=== PATIENT | male | born 1955 | race Caucasian/White ===

== ENCOUNTER 2023-12-29 03:28 | Inpatient (IN) | payer MEDICARE, OTHER ==
[2023-12-29] VITALS (7 sets, daily range): BP systolic 163–194; BP diastolic 88–98; TEMP 97.7–98.1; O2SAT 96–97
[~2023-12-29] VITALS: Ht 144.8 cm; Wt 57.6 kg
[2023-12-29 04:09] LABS: BASO # 0.1 10^3/uL (0.0-0.2); BASO % 1.1 % (0.0-1.0); EOS # 0.1 10^3/uL (0.0-0.5); EOS % 0.9 % (0.0-3.0); HEMATOCRIT 52.8 % (42.0-52.0); HEMOGLOBIN 18.4 g/dl (13.5-17.5); LYMPH # 2.5 10^3/uL (1.5-5.0); LYMPH % 25.1 % (24.0-44.0); MEAN CORPUSCULAR HGB CONC 34.8 g/dl (32.0-36.5); MEAN CORPUSCULAR VOLUME 94.8 fl (80.0-96.0); MONO # 1.4 10^3/uL (0.0-0.8); MONO % 13.6 % (2.0-8.0); NEUTROPHILS # 5.9 10^3/uL (1.5-8.5); NEUTROPHILS % 58.5 % (36.0-66.0); PLATELET COUNT, AUTOMATED 231 10^3/uL (150-450); RED BLOOD COUNT 5.57 10^6/uL (4.30-6.10); WHITE BLOOD COUNT 10.1 10^3/uL (4.0-10.0)
[2023-12-29] MEDS: methylPREDNISolone 125MG 2ML VIAL IV ONE (04:20)
[2023-12-29] MEDS: IPRATROPIUM 0.5MG/ALBUTEROL 2.5MG INH SOL UD 3ML (DUONEB) NEB SCH (04:31)
[2023-12-29 04:45] LABS: BLOOD UREA NITROGEN 10 MG/DL (9-23); CALCIUM LEVEL 8.7 MG/DL (8.3-10.6); CARBON DIOXIDE LEVEL 23 MMOL/L (20-31); CHLORIDE LEVEL 108 MMOL/L (98-107); CK-MB VALUE MASS < 1.0 NG/ML (<3.6); CPK CREATINE PHOSPHOKINASE 94 U/L (46-171); CREATININE FOR GFR 0.75 MG/DL (0.70-1.30); ETHYL ALCOHOL (ETHANOL) 0.335 % (0.000-0.010); GLOMERULAR FILTRATION RATE > 60.0 (>49); GLUCOSE, FASTING 87 MG/DL (74-106); MB/CK RELATIVE INDEX 1.06 (< OR =4); SODIUM LEVEL 141 MMOL/L (136-145)
[2023-12-29 05:31] LABS: CK-MB VALUE MASS < 1.0 NG/ML (<3.6)
[2023-12-29 05:33] LABS: CPK CREATINE PHOSPHOKINASE 49 U/L (46-171); MB/CK RELATIVE INDEX 2.04 (< OR =4); POTASSIUM SERUM 3.9 MMOL/L (3.5-5.1)
[2023-12-29] MEDS: LORazepam 2 MG/ML 1ML VIAL IV STA (05:41)
[2023-12-29] MEDS ORDERED: LORazepam 2 MG TAB PO PRN (06:10)
[2023-12-29] MEDS: ONDANSETRON 4MG 2ML VIAL IV ONE (06:16)
[2023-12-29] MEDS ORDERED: ISOVUE-370 76% 100ML VIAL As Ordered ONE (06:22)
[2023-12-29] MEDS: NS 1,000 ML IV ONE (06:46)
[2023-12-29] MEDS ORDERED: HOME MED LIST COMPLETE! XX SCH (07:00)
[2023-12-29] MEDS ORDERED: MAALOX 30 ML SUSP *UDC PO PRN (09:35)
[2023-12-29 09:45] LABS: BASO % 0.3 % (0.0-1.0); HEMATOCRIT 47.3 % (42.0-52.0); LYMPH # 0.4 10^3/uL (1.5-5.0); LYMPH % 4.4 % (24.0-44.0); MEAN CORPUSCULAR HEMOGLOBIN 32.8 pg (27.0-33.0); MEAN CORPUSCULAR VOLUME 96.3 fl (80.0-96.0); MONO # 0.1 10^3/uL (0.0-0.8); NEUTROPHILS # 8.6 10^3/uL (1.5-8.5); NEUTROPHILS % 93.5 % (36.0-66.0); PLATELET COUNT, AUTOMATED 200 10^3/uL (150-450); RED BLOOD COUNT 4.91 10^6/uL (4.30-6.10); WHITE BLOOD COUNT 9.2 10^3/uL (4.0-10.0)
[2023-12-29 09:48] LABS: PROTHROMBIN TIME 13.5 SECONDS (12.5-14.5)
[2023-12-29 09:49] LABS: HEMOGLOBIN 16.1 g/dl (13.5-17.5)
[2023-12-29 09:59] LABS: ALBUMIN 3.2 G/DL (3.2-5.2); BILIRUBIN,DIRECT 0.2 MG/DL (<0.4); BILIRUBIN,TOTAL 0.4 MG/DL (0.3-1.2); MAGNESIUM LEVEL 1.3 MG/DL (1.8-2.4); TOTAL PROTEIN 6.7 G/DL (5.7-8.2)
[2023-12-29] MEDS: THIAMINE 100 MG TAB PO SCH ×2 (10:11→20:45)
[2023-12-29] MEDS: PANTOPRAZOLE 40MG VIAL IV ONE (10:11)
[2023-12-29] MEDS: MULTIVITAMINS/MINERALS THERAP 1 TAB PO SCH (10:11)
[2023-12-29] MEDS: FOLIC ACID 1MG TAB PO SCH (10:11)
[2023-12-29] MEDS: PANTOPRAZOLE 40MG VIAL IV SCH (10:12)
[2023-12-29] MEDS: chlordiazePOXIDE 25 MG CAP PO SCH (11:53)
[2023-12-29] MEDS: MAG SULF 1GM/100ML (MAG RUN) 1 GM in IV 1 EA IV SCH (11:54)
[2023-12-29] MEDS: SUCRALFATE SUSP 1GM/10ML UD PO SCH (11:54)
[2023-12-29] MEDS: LORazepam 2 MG/ML 1ML VIAL IV PRN (16:27)
[2023-12-30] VITALS (13 sets, daily range): BP systolic 130–176; BP diastolic 70–93; TEMP 96.8–98.2; O2SAT 93–98
[2023-12-30] MEDS: METOCLOPRAMIDE INJ 10MG/2ML VIAL IV ONE (05:38)
[2023-12-30 06:09] LABS: HEMATOCRIT 44.2 % (42.0-52.0); MEAN CORPUSCULAR HEMOGLOBIN 32.9 pg (27.0-33.0); MEAN CORPUSCULAR HGB CONC 33.9 g/dl (32.0-36.5); MEAN CORPUSCULAR VOLUME 96.9 fl (80.0-96.0); PLATELET COUNT, AUTOMATED 183 10^3/uL (150-450); RED BLOOD COUNT 4.56 10^6/uL (4.30-6.10); WHITE BLOOD COUNT 14.4 10^3/uL (4.0-10.0)
[2023-12-30 06:30] LABS: ALKALINE PHOSPHATASE 119 U/L (40-129); ALT/SGPT 18 U/L (7.0-40); AST/SGOT 22 U/L (<34); BILIRUBIN,TOTAL 0.8 MG/DL (0.3-1.2); BLOOD UREA NITROGEN 16 MG/DL (9-23); CALCIUM LEVEL 8.3 MG/DL (8.3-10.6); CARBON DIOXIDE LEVEL 24 MMOL/L (20-31); CHLORIDE LEVEL 110 MMOL/L (98-107); CREATININE FOR GFR 0.85 MG/DL (0.70-1.30); GLOMERULAR FILTRATION RATE > 60.0 (>49); GLUCOSE, FASTING 111 MG/DL (74-106); MAGNESIUM LEVEL 2.3 MG/DL (1.8-2.4); POTASSIUM SERUM 4.6 MMOL/L (3.5-5.1); SODIUM LEVEL 141 MMOL/L (136-145); TOTAL PROTEIN 6.2 G/DL (5.7-8.2)
[2023-12-30] MEDS: MULTIVITAMINS/MINERALS THERAP 1 TAB PO SCH (09:01)
[2023-12-30] MEDS: OXAZEPAM 15MG CAP PO SCH (09:01)
[2023-12-30] MEDS: FOLIC ACID 1MG TAB PO SCH (09:01)
[2023-12-31] VITALS (64 sets, daily range): BP systolic 65–168; BP diastolic 48–85; TEMP 97.2–104.6; O2SAT 85–99
[2023-12-31] MEDS: ONDANSETRON 4MG 2ML VIAL IV ONE (00:01)
[2023-12-31 04:32] LABS: ABG BASE EXCESS -2.2 (-2.0-2.0); ABG HCO3 20.3 MMOL/L (22.0-26.0); ABG O2 SATURATION 92.1 % (95.0-99.0); ABG PARTIAL PRESSURE CO2 30.1 mmHg (35.0-45.0); ABG PARTIAL PRESSURE O2 59.7 mmHg (75.0-100.0); ABG STANDARD HCO3 22.5 MMOL/L. (22.0-26.0); ABG TOTAL CO2 21.2 MMOL/L (23.0-31.0); ABG pH (ARTERIAL) 7.447 UNITS (7.350-7.450)
[2023-12-31] MEDS: cefTRIAXone SOD 1 GM in DEXTROSE 5% (D5W) ADV/MINI-BAG 50 ML IV SCH (05:00)
[2023-12-31] MEDS: ONDANSETRON 4MG 2ML VIAL IV PRN (05:19)
[2023-12-31] MEDS: LORazepam 2 MG/ML 1ML VIAL IV PRN (05:30)
[2023-12-31 05:38] LABS: HEMATOCRIT 50.7 % (42.0-52.0); MEAN CORPUSCULAR HEMOGLOBIN 32.8 pg (27.0-33.0); MEAN CORPUSCULAR HGB CONC 33.5 g/dl (32.0-36.5); MEAN CORPUSCULAR VOLUME 97.9 fl (80.0-96.0); PLATELET COUNT, AUTOMATED 163 10^3/uL (150-450); RED BLOOD COUNT 5.18 10^6/uL (4.30-6.10); WHITE BLOOD COUNT 1.2 10^3/uL (4.0-10.0)
[2023-12-31 06:05] LABS: ALBUMIN 2.7 G/DL (3.2-5.2); ALKALINE PHOSPHATASE 99 U/L (40-129); ALT/SGPT 18 U/L (7.0-40); AST/SGOT 25 U/L (<34); BILIRUBIN,TOTAL 1.3 MG/DL (0.3-1.2); BLOOD UREA NITROGEN 29 MG/DL (9-23); CALCIUM LEVEL 8.2 MG/DL (8.3-10.6); CARBON DIOXIDE LEVEL 21 MMOL/L (20-31); CHLORIDE LEVEL 113 MMOL/L (98-107); CREATININE FOR GFR 1.06 MG/DL (0.70-1.30); GLOMERULAR FILTRATION RATE > 60.0 (>49); GLUCOSE, FASTING 124 MG/DL (74-106); POTASSIUM SERUM 4.4 MMOL/L (3.5-5.1); SODIUM LEVEL 143 MMOL/L (136-145); TOTAL PROTEIN 5.8 G/DL (5.7-8.2)
[2023-12-31] MEDS: metroNIDAZOLE 500 MG in IV 1 EA IV SCH (06:14)
[2023-12-31] MEDS: ACETAMINOPHEN *IV* 1,000 MG in IV 1 EA IV ONE (06:41)
[2023-12-31] MEDS ORDERED: NS 1,000 ML IV SCH (07:00)
[2023-12-31] MEDS: NS 1,000 ML IV ONE ×2 (07:36→11:57)
[2023-12-31 08:01] LABS: MAGNESIUM LEVEL 1.7 MG/DL (1.8-2.4)
[2023-12-31] MEDS ORDERED: PROCHLORPERAZINE 10MG 2ML VIAL IV PRN (09:00)
[2023-12-31] MEDS: LR 1,000 ML IV SCH ×2 (09:00→22:24)
[2023-12-31 09:04] LABS: VENOUS BASE EXCESS -6.4 (-2.0-2.0); VENOUS HCO3 19.5 MMOL/L (23.0-27.0); VENOUS O2 SATURATION 71.9 % (60.0-80.0); VENOUS PARTIAL PRESSURE CO2 40.3 mmHg (38.0-50.0); VENOUS PARTIAL PRESSURE O2 40.8 mmHg (30.0-50.0); VENOUS PH 7.303 UNITS (7.330-7.430); VENOUS STANDARD HCO3 18.7 MMOL/L; VENOUS TOTAL CO2 20.8 MMOL/L (24.0-28.0)
[2023-12-31] MEDS: PROCHLORPERAZINE 10MG 2ML VIAL IM ONE (09:10)
[2023-12-31 10:00] LABS: HEMATOCRIT 44.2 % (42.0-52.0); MEAN CORPUSCULAR HEMOGLOBIN 33.4 pg (27.0-33.0); MEAN CORPUSCULAR HGB CONC 33.5 g/dl (32.0-36.5); MEAN CORPUSCULAR VOLUME 99.8 fl (80.0-96.0); PLATELET COUNT, AUTOMATED 107 10^3/uL (150-450); RED BLOOD COUNT 4.43 10^6/uL (4.30-6.10); WHITE BLOOD COUNT 1.6 10^3/uL (4.0-10.0)
[2023-12-31 10:03] LABS: HEMOGLOBIN 14.8 g/dl (13.5-17.5)
[2023-12-31 10:38] LABS: ANISOCYTOSIS 1+; ATYPICAL LYMPH 10 % (0-5); LYMPHOCYTES 10 % (16-44); METAMYELOCYTES 4 % (0-0); MONOCYTES 18 % (0-5); NEUTROPHILS 46 % (28-66)
[2023-12-31 10:41] LABS: PLATELET ESTIMATE DECREASED (NORMAL)
[2023-12-31] MEDS: THIAMINE 200MG 2ML VIAL IV SCH (10:47)
[2023-12-31] MEDS: NOREPINEPHRINE 4MG IN D5 250ML 4 MG in IV 1 EA IV SCH (11:30)
[2023-12-31] MEDS: VASOPRESSIN IN 0.9 % NACL 20 UNIT in IV 1 EA IV SCH (11:30)
[2023-12-31 11:42] LABS: VENOUS BASE EXCESS -7.3 (-2.0-2.0); VENOUS HCO3 17.1 MMOL/L (23.0-27.0); VENOUS PARTIAL PRESSURE CO2 31.7 mmHg (38.0-50.0); VENOUS PARTIAL PRESSURE O2 50.7 mmHg (30.0-50.0); VENOUS PH 7.349 UNITS (7.330-7.430); VENOUS STANDARD HCO3 18.3 MMOL/L
[2023-12-31] MEDS: MAG SULF 1GM/100ML (MAG RUN) 1 GM in IV 1 EA IV ONE (13:56)
[2023-12-31] MEDS: SODIUM PHOSPHATE INJ 30 MMOL in D5W 500 ML IV ONE ×2 (16:45→20:48)
[2023-12-31 18:45] LABS: CALCIUM LEVEL 6.9 MG/DL (8.3-10.6); CREATININE FOR GFR 1.78 MG/DL (0.70-1.30); GLOMERULAR FILTRATION RATE 40.8 (>49); POTASSIUM SERUM 3.7 MMOL/L (3.5-5.1)
[2024-01-01] VITALS (47 sets, daily range): BP systolic 93–151; BP diastolic 56–111; TEMP 98–101.3; O2SAT 79–100
[2024-01-01 05:12] LABS: HEMATOCRIT 42.9 % (42.0-52.0); MEAN CORPUSCULAR HEMOGLOBIN 32.4 pg (27.0-33.0); MEAN CORPUSCULAR HGB CONC 32.6 g/dl (32.0-36.5); MEAN CORPUSCULAR VOLUME 99.3 fl (80.0-96.0); RED BLOOD COUNT 4.32 10^6/uL (4.30-6.10); WHITE BLOOD COUNT 11.4 10^3/uL (4.0-10.0)
[2024-01-01 05:20] LABS: PLATELET COUNT, AUTOMATED 83 10^3/uL (150-450)
[2024-01-01 05:44] LABS: ALBUMIN 2.2 G/DL (3.2-5.2); BILIRUBIN,TOTAL 0.7 MG/DL (0.3-1.2); CALCIUM LEVEL 7.1 MG/DL (8.3-10.6); CREATININE FOR GFR 1.63 MG/DL (0.70-1.30); GLOMERULAR FILTRATION RATE 45.1 (>49); MAGNESIUM LEVEL 1.5 MG/DL (1.8-2.4); PHOSPHORUS LEVEL 5.3 MG/DL (2.4-5.1); POTASSIUM SERUM 3.6 MMOL/L (3.5-5.1); TOTAL PROTEIN 4.9 G/DL (5.7-8.2)
[2024-01-01] MEDS: LORazepam 2 MG/ML 1ML VIAL IV STA (06:03)
[2024-01-01 06:53] LABS: ATYPICAL LYMPH 1 % (0-5); LYMPHOCYTES 11 % (16-44); METAMYELOCYTES 1 % (0-0); MONOCYTES 6 % (0-5); MYELOCYTES 2 % (0-0); NEUTROPHILS 74 % (28-66); PLATELET ESTIMATE DECREASED (NORMAL)
[2024-01-01] MEDS: ACETAMINOPHEN *IV* 1,000 MG in IV 1 EA IV ONE (08:44)
[2024-01-01 10:02] LABS: CLOSTRIDIUM DIFFICILE PCR NEGATIVE (NEGATIVE)
[2024-01-01] MEDS: MULTIVITAMIN -ADULT INJECTION 10 ML, THIAMINE INJection 100 MG, FOLIC ACID 1 MG in NS 1... IV SCH (11:14)
[2024-01-01] MEDS: MAG SULF 1GM/100ML (MAG RUN) 1 GM in IV 1 EA IV STA (11:14)
[2024-01-01] MEDS ORDERED: HEPARIN SOD (PORCINE) 5000UNITS/ML 1ML VIAL/SYRINGE SQ SCH (14:00)
[2024-01-02] VITALS (28 sets, daily range): BP systolic 133–175; BP diastolic 70–93; TEMP 98.2–100.8; O2SAT 88–100
[2024-01-02 05:03] LABS: HEMATOCRIT 39.4 % (42.0-52.0); HEMOGLOBIN 13.3 g/dl (13.5-17.5); MEAN CORPUSCULAR HEMOGLOBIN 33.3 pg (27.0-33.0); MEAN CORPUSCULAR HGB CONC 33.8 g/dl (32.0-36.5); MEAN CORPUSCULAR VOLUME 98.5 fl (80.0-96.0)
[2024-01-02 05:13] LABS: PLATELET COUNT, AUTOMATED 82 10^3/uL (150-450)
[2024-01-02 05:36] LABS: ALBUMIN 1.8 G/DL (3.2-5.2); BILIRUBIN,TOTAL 0.5 MG/DL (0.3-1.2); CALCIUM LEVEL 7.3 MG/DL (8.3-10.6); CREATININE FOR GFR 1.31 MG/DL (0.70-1.30); GLOMERULAR FILTRATION RATE 58.1 (>49); MAGNESIUM LEVEL 1.9 MG/DL (1.8-2.4); TOTAL PROTEIN 4.6 G/DL (5.7-8.2)
[2024-01-02 05:38] LABS: ATYPICAL LYMPH 3 % (0-5); LYMPHOCYTES 7 % (16-44); METAMYELOCYTES 1 % (0-0); MONOCYTES 4 % (0-5); NEUTROPHILS 77 % (28-66)
[2024-01-02 05:40] LABS: PLATELET CLUMPS SMALL AMT; PLATELET ESTIMATE NORMAL (NORMAL)
[2024-01-02 05:42] LABS: ANISOCYTOSIS 1+; TOXIC VACUOLATION 1+
[2024-01-02] MEDS ORDERED: GLUCAGON INJ 1MG VIAL SC PRN (07:45)
[2024-01-02] MEDS ORDERED: GLUCOSE 4 GM CHEW PO PRN (07:45)
[2024-01-02] MEDS: DEXTROSE 50% 50ML SYRINGE IV PRN (07:56)
[2024-01-02] MEDS: D5W 1,000 ML IV SCH (08:35)
[2024-01-02] MEDS: KCL 10MEQ/100ML SWI (KRUN) 10 MEQ in IV 1 EA IV SCH ×2 (08:40→18:18)
[2024-01-02 08:58] LABS: VENOUS BASE EXCESS -6.1 (-2.0-2.0); VENOUS HCO3 19.2 MMOL/L (23.0-27.0); VENOUS O2 SATURATION 70.4 % (60.0-80.0); VENOUS PARTIAL PRESSURE CO2 37.7 mmHg (38.0-50.0); VENOUS PARTIAL PRESSURE O2 39.1 mmHg (30.0-50.0); VENOUS PH 7.325 UNITS (7.330-7.430); VENOUS STANDARD HCO3 18.9 MMOL/L; VENOUS TOTAL CO2 20.4 MMOL/L (24.0-28.0)
[2024-01-02 16:23] LABS: POTASSIUM SERUM 3.2 MMOL/L (3.5-5.1)
[2024-01-03] VITALS (7 sets, daily range): BP systolic 125–172; BP diastolic 61–91; TEMP 98.5–100.8; O2SAT 90–95
[2024-01-03 04:39] LABS: VENOUS HCO3 15.6 MMOL/L (23.0-27.0); VENOUS O2 SATURATION 97.7 % (60.0-80.0); VENOUS PARTIAL PRESSURE CO2 27.6 mmHg (38.0-50.0); VENOUS PARTIAL PRESSURE O2 107.2 mmHg (30.0-50.0); VENOUS PH 7.371 UNITS (7.330-7.430); VENOUS TOTAL CO2 16.5 MMOL/L (24.0-28.0)
[2024-01-03 04:47] LABS: BASO # 0.1 10^3/uL (0.0-0.2); BASO % 0.7 % (0.0-1.0); EOS # 0.1 10^3/uL (0.0-0.5); EOS % 0.9 % (0.0-3.0); HEMATOCRIT 38.8 % (42.0-52.0); LYMPH # 0.8 10^3/uL (1.5-5.0); LYMPH % 6.1 % (24.0-44.0); MEAN CORPUSCULAR HEMOGLOBIN 32.7 pg (27.0-33.0); MEAN CORPUSCULAR HGB CONC 33.5 g/dl (32.0-36.5); MEAN CORPUSCULAR VOLUME 97.7 fl (80.0-96.0); MONO # 1.8 10^3/uL (0.0-0.8); MONO % 13.7 % (2.0-8.0); NEUTROPHILS # 10.2 10^3/uL (1.5-8.5); NEUTROPHILS % 75.4 % (36.0-66.0); RED BLOOD COUNT 3.97 10^6/uL (4.30-6.10); WHITE BLOOD COUNT 13.5 10^3/uL (4.0-10.0)
[2024-01-03 05:12] LABS: ALBUMIN 1.7 G/DL (3.2-5.2); ALKALINE PHOSPHATASE 92 U/L (40-129); ALT/SGPT 13 U/L (7.0-40); AST/SGOT 17 U/L (<34); BILIRUBIN,TOTAL 0.5 MG/DL (0.3-1.2); BLOOD UREA NITROGEN 29 MG/DL (9-23); CALCIUM LEVEL 7.3 MG/DL (8.3-10.6); CARBON DIOXIDE LEVEL 21 MMOL/L (20-31); CHLORIDE LEVEL 118 MMOL/L (98-107); CREATININE FOR GFR 0.87 MG/DL (0.70-1.30); GLOMERULAR FILTRATION RATE > 60.0 (>49); GLUCOSE, FASTING 109 MG/DL (74-106); MAGNESIUM LEVEL 1.7 MG/DL (1.8-2.4); POTASSIUM SERUM 3.5 MMOL/L (3.5-5.1); SODIUM LEVEL 146 MMOL/L (136-145); TOTAL PROTEIN 4.5 G/DL (5.7-8.2)
[2024-01-03 05:37] LABS: PLATELET COUNT, AUTOMATED 81 10^3/uL (150-450)
[2024-01-03] MEDS: MAG SULF 1GM/100ML (MAG RUN) 1 GM in IV 1 EA IV ONE (06:37)
[2024-01-03] MEDS: THIAMINE 200MG 2ML VIAL IV SCH (09:59)
[2024-01-03] MEDS: FUROSEMIDE 40MG/4ML VIAL IV SCH (09:59)
[2024-01-03] MEDS: ALBUTEROL SULFATE 2.5MG/0.5ML INH NEB SOLN NEB SCH (12:54)
[2024-01-03] MEDS: SODIUM CHLORIDE HYPERTONIC 3% 4ML NEB SOL INH SCH (12:54)
[2024-01-03] MEDS: HEPARIN SOD (PORCINE) 5000UNITS/ML 1ML VIAL/SYRINGE SQ SCH (20:32)
[2024-01-04] VITALS (10 sets, daily range): BP systolic 114–155; BP diastolic 55–78; TEMP 98–100.7; O2SAT 76–99
[2024-01-04 05:01] LABS: VENOUS BASE EXCESS -0.2 (-2.0-2.0); VENOUS HCO3 24.9 MMOL/L (23.0-27.0); VENOUS O2 SATURATION 96.3 % (60.0-80.0); VENOUS PARTIAL PRESSURE CO2 41.9 mmHg (38.0-50.0); VENOUS PARTIAL PRESSURE O2 83.6 mmHg (30.0-50.0); VENOUS PH 7.391 UNITS (7.330-7.430); VENOUS STANDARD HCO3 24.3 MMOL/L; VENOUS TOTAL CO2 26.1 MMOL/L (24.0-28.0)
[2024-01-04 05:15] LABS: HEMATOCRIT 39.7 % (42.0-52.0); HEMOGLOBIN 13.6 g/dl (13.5-17.5); MEAN CORPUSCULAR HEMOGLOBIN 33.1 pg (27.0-33.0); MEAN CORPUSCULAR HGB CONC 34.3 g/dl (32.0-36.5); MEAN CORPUSCULAR VOLUME 96.6 fl (80.0-96.0); RED BLOOD COUNT 4.11 10^6/uL (4.30-6.10); WHITE BLOOD COUNT 14.6 10^3/uL (4.0-10.0)
[2024-01-04 05:24] LABS: PLATELET COUNT, AUTOMATED 97 10^3/uL (150-450)
[2024-01-04 05:31] LABS: ALBUMIN 1.6 G/DL (3.2-5.2); ALKALINE PHOSPHATASE 107 U/L (40-129); ALT/SGPT 10 U/L (7.0-40); AST/SGOT 11 U/L (<34); BILIRUBIN,TOTAL 0.5 MG/DL (0.3-1.2); BLOOD UREA NITROGEN 17 MG/DL (9-23); CALCIUM LEVEL 7.1 MG/DL (8.3-10.6); CARBON DIOXIDE LEVEL 27 MMOL/L (20-31); CHLORIDE LEVEL 108 MMOL/L (98-107); CREATININE FOR GFR 0.76 MG/DL (0.70-1.30); GLOMERULAR FILTRATION RATE > 60.0 (>49); GLUCOSE, FASTING 142 MG/DL (74-106); MAGNESIUM LEVEL 1.2 MG/DL (1.8-2.4); POTASSIUM SERUM 2.8 MMOL/L (3.5-5.1); SODIUM LEVEL 142 MMOL/L (136-145); TOTAL PROTEIN 4.3 G/DL (5.7-8.2)
[2024-01-04] MEDS: KCL 10MEQ/100ML SWI (KRUN) 10 MEQ in IV 1 EA IV SCH ×2 (05:57→08:16)
[2024-01-04 05:59] LABS: ATYPICAL LYMPH 7 % (0-5); EOSINOPHILS 3 % (0-3); LYMPHOCYTES 21 % (16-44); MONOCYTES 12 % (0-5); NEUTROPHILS 56 % (28-66)
[2024-01-04 06:00] LABS: ANISOCYTOSIS 1+; PLATELET ESTIMATE DECREASED (NORMAL)
[2024-01-04] MEDS: MAG SULF 1GM/100ML (MAG RUN) 1 GM in IV 1 EA IV SCH (06:25)
[2024-01-04 07:30] LABS: CLOSTRIDIUM DIFFICILE PCR NEGATIVE (NEGATIVE)
[2024-01-04 07:50] LABS: PROCALCITONIN 6.36 ng/ml
[2024-01-04] MEDS: FUROSEMIDE 40MG/4ML VIAL IV SCH (08:43)
[2024-01-05] VITALS (26 sets, daily range): BP systolic 115–174; BP diastolic 57–81; TEMP 99.4–102.2; O2SAT 87–94
[2024-01-05] MEDS: ACETAMINOPHEN *IV* 1,000 MG in IV 1 EA IV ONE (00:15)
[2024-01-05 05:21] LABS: HEMATOCRIT 38.2 % (42.0-52.0); MEAN CORPUSCULAR HEMOGLOBIN 32.3 pg (27.0-33.0); PLATELET COUNT, AUTOMATED 152 10^3/uL (150-450); RED BLOOD COUNT 4.02 10^6/uL (4.30-6.10); WHITE BLOOD COUNT 19.6 10^3/uL (4.0-10.0)
[2024-01-05 05:50] LABS: ALBUMIN 1.6 G/DL (3.2-5.2); ALKALINE PHOSPHATASE 174 U/L (40-129); ALT/SGPT 9 U/L (7.0-40); AST/SGOT 17 U/L (<34); ATYPICAL LYMPH 4 % (0-5); BILIRUBIN,TOTAL 0.7 MG/DL (0.3-1.2); BLOOD UREA NITROGEN 18 MG/DL (9-23); CALCIUM LEVEL 7.3 MG/DL (8.3-10.6); CARBON DIOXIDE LEVEL 27 MMOL/L (20-31); CHLORIDE LEVEL 109 MMOL/L (98-107); CREATININE FOR GFR 0.79 MG/DL (0.70-1.30); GLOMERULAR FILTRATION RATE > 60.0 (>49); GLUCOSE, FASTING 76 MG/DL (74-106); LYMPHOCYTES 7 % (16-44); MAGNESIUM LEVEL 1.6 MG/DL (1.8-2.4); MONOCYTES 13 % (0-5); NEUTROPHILS 76 % (28-66); SODIUM LEVEL 142 MMOL/L (136-145); TOTAL PROTEIN 4.6 G/DL (5.7-8.2)
[2024-01-05 05:51] LABS: PLATELET ESTIMATE NORMAL (NORMAL)
[2024-01-05 05:52] LABS: ANISOCYTOSIS 1+
[2024-01-05] MEDS: MAG SULF 1GM/100ML (MAG RUN) 1 GM in IV 1 EA IV ONE ×2 (06:41→08:49)
[2024-01-05] MEDS ORDERED: VANCOMYCIN HCL 1,000 MG in IV FLUID PLACE HOLDER 1 EA IV ONE (08:10)
[2024-01-05] MEDS: KCL 10MEQ/100ML SWI (KRUN) 10 MEQ in IV 1 EA IV SCH (08:49)
[2024-01-05] MEDS: PIPERACILLIN/TAZOBACTAM SOD 4.5 GM in DEXTROSE 5% (D5W) ADV/MINI-BAG 50 ML IV SCH (09:59)
[2024-01-05] MEDS: GASTROGRAFIN SOLUTION 30ML PO SCH (09:59)
[2024-01-05] MEDS ORDERED: KCL 10MEQ/100ML SWI (KRUN) 10 MEQ in IV 1 EA IV SCH (10:00)
[2024-01-05] MEDS: FUROSEMIDE 40MG/4ML VIAL IV SCH (10:00)
[2024-01-05] MEDS: VANCOMYCIN 1,500 MG/300 ML IV BAG *LOAD IV ONE (10:59)
[2024-01-05] MEDS: ACETAMINOPHEN *IV* 1,000 MG in IV 1 EA IV PRN (11:00)
[2024-01-05] MEDS: SODIUM CHLORIDE 0.9% INJ 10 ML SYR IV SCH (11:07)
[2024-01-05] MEDS: KCL 20MEQ IN 100ML SWI (KRUN) 20 MEQ in IV 1 EA IV SCH (11:07)
[2024-01-05] MEDS: AZITHROMYCIN INJ 500 MG, VIAL MATE ADAPTER 1 EACH in NS 250 ML IV SCH (16:32)
[2024-01-05 16:51] LABS: HIV 1&2 SCREEN NEGATIVE (NEGATIVE)
[2024-01-05] MEDS: VANCOMYCIN 1,000MG/200 ML IV BAG IV SCH (19:44)
[2024-01-05] MEDS: FLUCONAZOLE 200 MG in IV 1 EA IV SCH (23:58)
[2024-01-06] VITALS (20 sets, daily range): BP systolic 121–178; BP diastolic 59–85; TEMP 99.1–100.4; O2SAT 83–100
[2024-01-06 05:54] LABS: HEMATOCRIT 38.2 % (42.0-52.0); HEMOGLOBIN 13.1 g/dl (13.5-17.5); MEAN CORPUSCULAR HEMOGLOBIN 32.7 pg (27.0-33.0); MEAN CORPUSCULAR HGB CONC 34.3 g/dl (32.0-36.5); MEAN CORPUSCULAR VOLUME 95.3 fl (80.0-96.0); PLATELET COUNT, AUTOMATED 232 10^3/uL (150-450); RED BLOOD COUNT 4.01 10^6/uL (4.30-6.10); WHITE BLOOD COUNT 29.7 10^3/uL (4.0-10.0)
[2024-01-06 06:19] LABS: ALBUMIN 1.7 G/DL (3.2-5.2); ALKALINE PHOSPHATASE 215 U/L (40-129); ALT/SGPT 9 U/L (7.0-40); AST/SGOT 17 U/L (<34); BILIRUBIN,TOTAL 0.9 MG/DL (0.3-1.2); BLOOD UREA NITROGEN 19 MG/DL (9-23); CALCIUM LEVEL 7.3 MG/DL (8.3-10.6); CARBON DIOXIDE LEVEL 26 MMOL/L (20-31); CHLORIDE LEVEL 106 MMOL/L (98-107); CREATININE FOR GFR 0.86 MG/DL (0.70-1.30); GLOMERULAR FILTRATION RATE > 60.0 (>49); GLUCOSE, FASTING 80 MG/DL (74-106); MAGNESIUM LEVEL 1.5 MG/DL (1.8-2.4); POTASSIUM SERUM 3.1 MMOL/L (3.5-5.1); SODIUM LEVEL 143 MMOL/L (136-145); TOTAL PROTEIN 4.6 G/DL (5.7-8.2)
[2024-01-06 06:21] LABS: ANISOCYTOSIS 1+; ATYPICAL LYMPH 1 % (0-5); LYMPHOCYTES 11 % (16-44); PLATELET ESTIMATE NORMAL (NORMAL)
[2024-01-06 06:22] LABS: MONOCYTES 12 % (0-5); NEUTROPHILS 76 % (28-66)
[2024-01-06] MEDS: VANCOMYCIN 750MG/150 ML IV BAG IV SCH (08:14)
[2024-01-06] MEDS: MAG SULF 1GM/100ML (MAG RUN) 1 GM in IV 1 EA IV SCH (10:00)
[2024-01-06] MEDS: KCL 20MEQ IN 100ML SWI (KRUN) 20 MEQ in IV 1 EA IV SCH (10:31)
[2024-01-07] VITALS (10 sets, daily range): BP systolic 135–154; BP diastolic 65–86; TEMP 98.8–100.5; O2SAT 90–98
[2024-01-07 04:16] LABS: HEMATOCRIT 38.4 % (42.0-52.0); HEMOGLOBIN 13.3 g/dl (13.5-17.5); MEAN CORPUSCULAR HEMOGLOBIN 32.6 pg (27.0-33.0); MEAN CORPUSCULAR HGB CONC 34.6 g/dl (32.0-36.5); MEAN CORPUSCULAR VOLUME 94.1 fl (80.0-96.0); RED BLOOD COUNT 4.08 10^6/uL (4.30-6.10)
[2024-01-07 04:25] LABS: PLATELET COUNT, AUTOMATED 332 10^3/uL (150-450)
[2024-01-07 04:46] LABS: ALBUMIN 1.6 G/DL (3.2-5.2); ALKALINE PHOSPHATASE 317 U/L (40-129); ALT/SGPT 10 U/L (7.0-40); AST/SGOT 19 U/L (<34); BILIRUBIN,TOTAL 0.9 MG/DL (0.3-1.2); BLOOD UREA NITROGEN 21 MG/DL (9-23); CALCIUM LEVEL 7.6 MG/DL (8.3-10.6); CARBON DIOXIDE LEVEL 30 MMOL/L (20-31); CHLORIDE LEVEL 104 MMOL/L (98-107); CREATININE FOR GFR 0.84 MG/DL (0.70-1.30); GLOMERULAR FILTRATION RATE > 60.0 (>49); GLUCOSE, FASTING 109 MG/DL (74-106); MAGNESIUM LEVEL 1.5 MG/DL (1.8-2.4); POTASSIUM SERUM 3.1 MMOL/L (3.5-5.1); SODIUM LEVEL 141 MMOL/L (136-145); TOTAL PROTEIN 4.8 G/DL (5.7-8.2)
[2024-01-07 05:19] LABS: ATYPICAL LYMPH 5 % (0-5); EOSINOPHILS 1 % (0-3); LYMPHOCYTES 3 % (16-44); MONOCYTES 5 % (0-5); NEUTROPHILS 82 % (28-66); PLASMA CELL 1 % (0-0)
[2024-01-07 05:28] LABS: ANISOCYTOSIS 1+
[2024-01-07 07:25] LABS: PLATELET ESTIMATE NORMAL (NORMAL)
[2024-01-07] MEDS: MAG SULF 1GM/100ML (MAG RUN) 1 GM in IV 1 EA IV SCH (09:11)
[2024-01-07] MEDS: KCL 20MEQ IN 100ML SWI (KRUN) 20 MEQ in IV 1 EA IV SCH (10:10)
[2024-01-07 10:18] LABS: VANCOMYCIN RANDOM 9.7 UG/ML
[2024-01-07] MEDS ORDERED: VARIBAR PUDDING 40% w/v 230ML TUBE As Ordered ONE (12:20)
[2024-01-07] MEDS ORDERED: E-Z-PAQUE 96% w/w SUSP 176GM BTL As Ordered ONE (12:21)
[2024-01-07] MEDS ORDERED: VARIBAR NECTAR 40% w/v 240ML SUSP BTL As Ordered ONE (12:21)
[2024-01-07] MEDS ORDERED: BARIUM SULFATE 700 MG TABLET (E-Z-DISK) As Ordered ONE (12:22)
[2024-01-07] MEDS: VANCOMYCIN 1,000MG/200 ML IV BAG IV SCH (13:26)
[2024-01-07 16:08] LABS: PROCALCITONIN 16.97 ng/ml
[2024-01-07] MEDS: FUROSEMIDE 40MG/4ML VIAL IV SCH (16:36)
[2024-01-08] VITALS (10 sets, daily range): BP systolic 119–174; BP diastolic 57–88; TEMP 99.1–101.8; O2SAT 89–97
[2024-01-08 05:39] LABS: HEMATOCRIT 35.7 % (42.0-52.0); HEMOGLOBIN 12.3 g/dl (13.5-17.5); MEAN CORPUSCULAR HEMOGLOBIN 32.4 pg (27.0-33.0); MEAN CORPUSCULAR HGB CONC 34.5 g/dl (32.0-36.5); MEAN CORPUSCULAR VOLUME 93.9 fl (80.0-96.0); PLATELET COUNT, AUTOMATED 440 10^3/uL (150-450); WHITE BLOOD COUNT 29.7 10^3/uL (4.0-10.0)
[2024-01-08 06:03] LABS: ALBUMIN 1.4 G/DL (3.2-5.2); ALKALINE PHOSPHATASE 410 U/L (40-129); ALT/SGPT 12 U/L (7.0-40); AST/SGOT 18 U/L (<34); BILIRUBIN,TOTAL 0.8 MG/DL (0.3-1.2); BLOOD UREA NITROGEN 22 MG/DL (9-23); CALCIUM LEVEL 7.7 MG/DL (8.3-10.6); CARBON DIOXIDE LEVEL 30 MMOL/L (20-31); CHLORIDE LEVEL 104 MMOL/L (98-107); CREATININE FOR GFR 0.94 MG/DL (0.70-1.30); GLOMERULAR FILTRATION RATE > 60.0 (>49); GLUCOSE, FASTING 85 MG/DL (74-106); MAGNESIUM LEVEL 1.4 MG/DL (1.8-2.4); POTASSIUM SERUM 2.8 MMOL/L (3.5-5.1); SODIUM LEVEL 142 MMOL/L (136-145); TOTAL PROTEIN 4.7 G/DL (5.7-8.2)
[2024-01-08] MEDS: KCL 10MEQ/100ML SWI (KRUN) 10 MEQ in IV 1 EA IV SCH (06:53)
[2024-01-08] MEDS: MAG SULF 1GM/100ML (MAG RUN) 1 GM in IV 1 EA IV SCH (09:05)
[2024-01-08] MEDS: VANCOMYCIN 750MG/150 ML IV BAG IV SCH (11:25)
[2024-01-08] MEDS: POTASSIUM CHLORIDE 10MEQ SR TABLET PO ONE (12:18)
[2024-01-08] MEDS: POTASSIUM CHLORIDE 10% LIQ 20MEQ/15ML UDC PO ONE ×3 (13:05→20:05)
[2024-01-08] MEDS ORDERED: POTASSIUM CHLORIDE 10MEQ SR TABLET PO ONE ×2 (16:00→19:00)
[2024-01-08 18:42] LABS: URINE STREP PNEUMONIAE ANTIGEN NOT DETECTED (NOT DETECT)
[2024-01-09] VITALS (10 sets, daily range): BP systolic 103–161; BP diastolic 59–97; TEMP 99–102; O2SAT 78–97
[2024-01-09 04:33] LABS: HEMATOCRIT 36.4 % (42.0-52.0); HEMOGLOBIN 12.5 g/dl (13.5-17.5); MEAN CORPUSCULAR HEMOGLOBIN 32.3 pg (27.0-33.0); MEAN CORPUSCULAR HGB CONC 34.3 g/dl (32.0-36.5); MEAN CORPUSCULAR VOLUME 94.1 fl (80.0-96.0); RED BLOOD COUNT 3.87 10^6/uL (4.30-6.10); WHITE BLOOD COUNT 25.8 10^3/uL (4.0-10.0)
[2024-01-09 04:38] LABS: PLATELET COUNT, AUTOMATED 543 10^3/uL (150-450)
[2024-01-09 04:59] LABS: ATYPICAL LYMPH 1 % (0-5); BASOPHILS 1 % (0-1); EOSINOPHILS 1 % (0-3); LYMPHOCYTES 3 % (16-44); MONOCYTES 5 % (0-5); NEUTROPHILS 89 % (28-66)
[2024-01-09 05:00] LABS: ANISOCYTOSIS 1+; PLATELET ESTIMATE INCREASED (NORMAL)
[2024-01-09 05:03] LABS: GIANT PLATELETS 1+
[2024-01-09 05:13] LABS: ALBUMIN 1.5 G/DL (3.2-5.2); ALKALINE PHOSPHATASE 617 U/L (40-129); ALT/SGPT 22 U/L (7.0-40); AST/SGOT 39 U/L (<34); BILIRUBIN,TOTAL 0.8 MG/DL (0.3-1.2); BLOOD UREA NITROGEN 19 MG/DL (9-23); CALCIUM LEVEL 7.6 MG/DL (8.3-10.6); CARBON DIOXIDE LEVEL 24 MMOL/L (20-31); CHLORIDE LEVEL 110 MMOL/L (98-107); CREATININE FOR GFR 0.73 MG/DL (0.70-1.30); GLOMERULAR FILTRATION RATE > 60.0 (>49); GLUCOSE, FASTING 100 MG/DL (74-106); MAGNESIUM LEVEL 1.7 MG/DL (1.8-2.4); PHOSPHORUS LEVEL 1.9 MG/DL (2.4-5.1); POTASSIUM SERUM 4.4 MMOL/L (3.5-5.1); SODIUM LEVEL 142 MMOL/L (136-145); TOTAL PROTEIN 4.8 G/DL (5.7-8.2)
[2024-01-09 07:56] LABS: VANCOMYCIN RANDOM 21.3 UG/ML
[2024-01-09] MEDS: PANTOPRAZOLE 40MG VIAL IV SCH (08:01)
[2024-01-09] MEDS: MAG SULF 1GM/100ML (MAG RUN) 1 GM in IV 1 EA IV ONE (08:03)
[2024-01-09] MEDS: VANCOMYCIN 1,000MG/200 ML IV BAG IV SCH (10:12)
[2024-01-09] MEDS: POTASSIUM PHOSPHATE INJ 30 MMOL in D5W 500 ML IV ONE (10:14)
[2024-01-09] MEDS: LOPERAMIDE 2 MG CAPLET PO PRN (10:19)
[2024-01-09 13:39] LABS: APPEARANCE, BODY FLUID HAZY (CLEAR); PLEURAL FL COLOR YELLOW (COLORLESS); SOURCE, BODY FLUID PLEURAL
[2024-01-09 14:00] LABS: SOURCE, BODY FLUID ALBUMIN PLEURAL
[2024-01-09 14:05] LABS: SOURCE, BODY FLUID GLUCOSE PLEURAL; SOURCE, BODY FLUID TRIG PLEURAL; TRIGLYCERIDE, BODY FLUID 28 MG/DL (NOT ESTABLISHED)
[2024-01-09 14:06] LABS: LDH, BODY FLUID 217 U/L (NOT ESTABLISHED); SOURCE, BODY FLUID LDH PLEURAL
[2024-01-09 14:07] LABS: AMYLASE, BODY FLUID 23 U/L (NOT ESTABLISHED); CHOLESTEROL, BODY FLUID < 25 MG/DL (NOT ESTABLISHED); SOURCE, BODY FLUID AMYLASE PLEURAL; SOURCE, BODY FLUID CHOL PLEURAL
[2024-01-09 16:04] LABS: SOURCE, BODY FLUID TOT PROTEIN PLEURAL; TOTAL PROTEIN, BODY FLUID < 2.0 G/DL (NOT ESTABLISHED)
[2024-01-09] MEDS: LACTOBACILLUS ACIDOPHILUS CAP (BACID) PO SCH (17:03)
[2024-01-09 18:57] LABS: LDH LACTATE DEHYDROGENASE 260 U/L (120-246)
[2024-01-09] MEDS: FLUCONAZOLE 100 MG TAB PO SCH (20:09)
[2024-01-10] VITALS (7 sets, daily range): BP systolic 103–137; BP diastolic 55–69; TEMP 98.9–101.2; O2SAT 92–98
[2024-01-10 04:42] LABS: HEMATOCRIT 36.9 % (42.0-52.0); HEMOGLOBIN 12.6 g/dl (13.5-17.5); MEAN CORPUSCULAR HEMOGLOBIN 32.8 pg (27.0-33.0); MEAN CORPUSCULAR HGB CONC 34.1 g/dl (32.0-36.5); MEAN CORPUSCULAR VOLUME 96.1 fl (80.0-96.0); RED BLOOD COUNT 3.84 10^6/uL (4.30-6.10); WHITE BLOOD COUNT 23.4 10^3/uL (4.0-10.0)
[2024-01-10 04:48] LABS: PLATELET COUNT, AUTOMATED 646 10^3/uL (150-450)
[2024-01-10 05:19] LABS: PROCALCITONIN 36.95 ng/ml
[2024-01-10 05:30] LABS: ALBUMIN 1.6 G/DL (3.2-5.2); ALKALINE PHOSPHATASE 514 U/L (40-129); ALT/SGPT 19 U/L (7.0-40); AST/SGOT 19 U/L (<34); BILIRUBIN,TOTAL 1.1 MG/DL (0.3-1.2); BLOOD UREA NITROGEN 17 MG/DL (9-23); CALCIUM LEVEL 8.2 MG/DL (8.3-10.6); CARBON DIOXIDE LEVEL 23 MMOL/L (20-31); CHLORIDE LEVEL 108 MMOL/L (98-107); CREATININE FOR GFR 0.79 MG/DL (0.70-1.30); GLOMERULAR FILTRATION RATE > 60.0 (>49); GLUCOSE, FASTING 80 MG/DL (74-106); MAGNESIUM LEVEL 1.7 MG/DL (1.8-2.4); PHOSPHORUS LEVEL 3.5 MG/DL (2.4-5.1); POTASSIUM SERUM 4.2 MMOL/L (3.5-5.1); SODIUM LEVEL 139 MMOL/L (136-145)
[2024-01-10 05:46] LABS: ATYPICAL LYMPH 1 % (0-5); LYMPHOCYTES 12 % (16-44); MONOCYTES 12 % (0-5); NEUTROPHILS 73 % (28-66)
[2024-01-10 05:47] LABS: ANISOCYTOSIS 1+; PLATELET CLUMPS SMALL AMT; PLATELET ESTIMATE INCREASED (NORMAL)
[2024-01-10] MEDS: THIAMINE 100 MG TAB PO SCH (09:32)
[2024-01-10] MEDS: MAG SULF 1GM/100ML (MAG RUN) 1 GM in IV 1 EA IV ONE (09:33)
[2024-01-10] MEDS: IBUPROFEN 800 MG TAB PO ONE (17:25)
[2024-01-11] VITALS (9 sets, daily range): BP systolic 108–174; BP diastolic 59–77; TEMP 97.9–101.4; O2SAT 91–97
[2024-01-11 05:22] LABS: HEMATOCRIT 35.4 % (42.0-52.0); HEMOGLOBIN 11.8 g/dl (13.5-17.5); MEAN CORPUSCULAR HEMOGLOBIN 32.5 pg (27.0-33.0); MEAN CORPUSCULAR HGB CONC 33.3 g/dl (32.0-36.5); MEAN CORPUSCULAR VOLUME 97.5 fl (80.0-96.0); PLATELET COUNT, AUTOMATED 780 10^3/uL (150-450); RED BLOOD COUNT 3.63 10^6/uL (4.30-6.10); WHITE BLOOD COUNT 19.3 10^3/uL (4.0-10.0)
[2024-01-11 05:38] LABS: ALBUMIN 1.5 G/DL (3.2-5.2); ALKALINE PHOSPHATASE 606 U/L (40-129); ALT/SGPT 17 U/L (7.0-40); AST/SGOT 21 U/L (<34); BILIRUBIN,TOTAL 0.7 MG/DL (0.3-1.2); BLOOD UREA NITROGEN 16 MG/DL (9-23); CALCIUM LEVEL 8.5 MG/DL (8.3-10.6); CARBON DIOXIDE LEVEL 23 MMOL/L (20-31); CHLORIDE LEVEL 107 MMOL/L (98-107); CREATININE FOR GFR 0.81 MG/DL (0.70-1.30); GLOMERULAR FILTRATION RATE > 60.0 (>49); GLUCOSE, FASTING 77 MG/DL (74-106); MAGNESIUM LEVEL 1.9 MG/DL (1.8-2.4); PHOSPHORUS LEVEL 3.2 MG/DL (2.4-5.1); POTASSIUM SERUM 4.5 MMOL/L (3.5-5.1); SODIUM LEVEL 138 MMOL/L (136-145); TOTAL PROTEIN 5.1 G/DL (5.7-8.2)
[2024-01-11 06:08] LABS: ATYPICAL LYMPH 3 % (0-5); BASOPHILS 1 % (0-1); EOSINOPHILS 3 % (0-3); LYMPHOCYTES 15 % (16-44); MONOCYTES 4 % (0-5); NEUTROPHILS 73 % (28-66)
[2024-01-11 06:09] LABS: ANISOCYTOSIS 1+; PLATELET ESTIMATE INCREASED (NORMAL)
[2024-01-11 06:10] LABS: POLYCHROMASIA 1+
[2024-01-11] MEDS: HYDROmorphone 2 MG TAB PO ONE (23:19)
[2024-01-11] MEDS ORDERED: PILL CUTTER 1 EACH XX PRN (23:20)
[2024-01-12] VITALS (8 sets, daily range): BP systolic 103–149; BP diastolic 50–75; TEMP 98.8–102.3; O2SAT 18–99
[2024-01-12 01:24] LABS: VENOUS BASE EXCESS -3.7 (-2.0-2.0); VENOUS HCO3 18.9 MMOL/L (23.0-27.0); VENOUS O2 SATURATION 90.6 % (60.0-80.0); VENOUS PARTIAL PRESSURE CO2 27.8 mmHg (38.0-50.0); VENOUS PARTIAL PRESSURE O2 57.5 mmHg (30.0-50.0); VENOUS STANDARD HCO3 21.2 MMOL/L; VENOUS TOTAL CO2 19.7 MMOL/L (24.0-28.0)
[2024-01-12 01:34] LABS: BASO # 0.2 10^3/uL (0.0-0.2); BASO % 1.1 % (0.0-1.0); EOS # 0.2 10^3/uL (0.0-0.5); EOS % 0.8 % (0.0-3.0); HEMATOCRIT 34.7 % (42.0-52.0); HEMOGLOBIN 11.9 g/dl (13.5-17.5); LYMPH % 9.7 % (24.0-44.0); MEAN CORPUSCULAR HEMOGLOBIN 32.5 pg (27.0-33.0); MEAN CORPUSCULAR HGB CONC 34.3 g/dl (32.0-36.5); MEAN CORPUSCULAR VOLUME 94.8 fl (80.0-96.0); MONO # 1.8 10^3/uL (0.0-0.8); MONO % 8.7 % (2.0-8.0); NEUTROPHILS # 14.4 10^3/uL (1.5-8.5); NEUTROPHILS % 71.3 % (36.0-66.0); PLATELET COUNT, AUTOMATED 873 10^3/uL (150-450); RED BLOOD COUNT 3.66 10^6/uL (4.30-6.10); WHITE BLOOD COUNT 20.2 10^3/uL (4.0-10.0)
[2024-01-12 02:01] LABS: ALBUMIN 1.6 G/DL (3.2-5.2); ALKALINE PHOSPHATASE 659 U/L (40-129); ALT/SGPT 18 U/L (7.0-40); AST/SGOT 40 U/L (<34); BILIRUBIN,TOTAL 0.7 MG/DL (0.3-1.2); BLOOD UREA NITROGEN 13 MG/DL (9-23); CALCIUM LEVEL 7.9 MG/DL (8.3-10.6); CARBON DIOXIDE LEVEL 20 MMOL/L (20-31); CHLORIDE LEVEL 108 MMOL/L (98-107); CREATININE FOR GFR 0.71 MG/DL (0.70-1.30); GLOMERULAR FILTRATION RATE > 60.0 (>49); GLUCOSE, FASTING 103 MG/DL (74-106); MAGNESIUM LEVEL 1.6 MG/DL (1.8-2.4); POTASSIUM SERUM 4.7 MMOL/L (3.5-5.1); SODIUM LEVEL 135 MMOL/L (136-145); TOTAL PROTEIN 5.3 G/DL (5.7-8.2)
[2024-01-12 02:57] LABS: ERYTHROCYTE SEDIMENTATION RATE > 130 mm/hr (0-20)
[2024-01-12 03:18] LABS: PROCALCITONIN 10.97 ng/ml
[2024-01-12] MEDS: MAGNESIUM OXIDE 400MG TAB (MAG-OX) PO SCH (03:31)
[2024-01-12] MEDS: BISACODYL 10MG SUPP PR PRN (05:10)
[2024-01-12] MEDS: MAALOX 30 ML SUSP *UDC PO PRN (05:11)
[2024-01-12] MEDS: KETOROLAC 30 MG/ML 1ML VIAL IV ONE ×2 (06:06→20:28)
[2024-01-12] MEDS: ACETAMINOPHEN *IV* 1,000 MG in IV 1 EA IV ONE (06:08)
[2024-01-12] MEDS: MAG SULF 1GM/100ML (MAG RUN) 1 GM in IV 1 EA IV ONE (10:08)
[2024-01-12] MEDS: MEROPENEM INJ 1 GM in IV 1 EA IV SCH (20:29)
[2024-01-13] VITALS (8 sets, daily range): BP systolic 131–180; BP diastolic 65–97; TEMP 98.1–100.4; O2SAT 90–95
[2024-01-13] MEDS: NS 500 ML IV ONE (01:50)
[2024-01-13] MEDS: NS 1,000 ML IV SCH (06:00)
[2024-01-13 07:18] LABS: BLOOD UREA NITROGEN 12 MG/DL (9-23); CALCIUM LEVEL 7.5 MG/DL (8.3-10.6); CARBON DIOXIDE LEVEL 19 MMOL/L (20-31); CHLORIDE LEVEL 113 MMOL/L (98-107); CREATININE FOR GFR 0.76 MG/DL (0.70-1.30); GLOMERULAR FILTRATION RATE > 60.0 (>49); GLUCOSE, FASTING 92 MG/DL (74-106); MAGNESIUM LEVEL 1.8 MG/DL (1.8-2.4); POTASSIUM SERUM 3.6 MMOL/L (3.5-5.1); SODIUM LEVEL 140 MMOL/L (136-145)
[2024-01-13 09:20] LABS: BASO # 0.1 10^3/uL (0.0-0.2); BASO % 0.5 % (0.0-1.0); EOS # 0.3 10^3/uL (0.0-0.5); EOS % 1.5 % (0.0-3.0); HEMATOCRIT 34.7 % (42.0-52.0); HEMOGLOBIN 11.9 g/dl (13.5-17.5); LYMPH # 1.3 10^3/uL (1.5-5.0); LYMPH % 8.1 % (24.0-44.0); MEAN CORPUSCULAR HEMOGLOBIN 33.1 pg (27.0-33.0); MEAN CORPUSCULAR HGB CONC 34.3 g/dl (32.0-36.5); MEAN CORPUSCULAR VOLUME 96.4 fl (80.0-96.0); MONO # 1.2 10^3/uL (0.0-0.8); MONO % 7.5 % (2.0-8.0); NEUTROPHILS # 12.6 10^3/uL (1.5-8.5); NEUTROPHILS % 76.6 % (36.0-66.0); PLATELET COUNT, AUTOMATED 837 10^3/uL (150-450); WHITE BLOOD COUNT 16.4 10^3/uL (4.0-10.0)
[2024-01-13 09:47] LABS: VANCOMYCIN LEVEL TROUGH 19.1 UG/ML (10.0-20.0)
[2024-01-13 10:53] LABS: PROCALCITONIN 3.85 ng/ml
[2024-01-13 10:57] LABS: ALBUMIN 1.5 G/DL (3.2-5.2); ALKALINE PHOSPHATASE 539 U/L (40-129); ALT/SGPT 20 U/L (7.0-40); AST/SGOT 20 U/L (<34); BILIRUBIN,TOTAL 0.6 MG/DL (0.3-1.2); BLOOD UREA NITROGEN 13 MG/DL (9-23); CARBON DIOXIDE LEVEL 20 MMOL/L (20-31); CHLORIDE LEVEL 112 MMOL/L (98-107); GLOMERULAR FILTRATION RATE > 60.0 (>49); GLUCOSE, FASTING 90 MG/DL (74-106); SODIUM LEVEL 139 MMOL/L (136-145)
[2024-01-13] MEDS: FUROSEMIDE 40MG/4ML VIAL IV SCH (17:32)
[2024-01-14] VITALS (10 sets, daily range): BP systolic 140–178; BP diastolic 79–96; TEMP 97.3–98.5; O2SAT 5–100
[2024-01-14] MEDS: IBUPROFEN 400MG TAB PO ONE (00:44)
[2024-01-14 06:19] LABS: MEAN CORPUSCULAR HEMOGLOBIN 32.6 pg (27.0-33.0); MEAN CORPUSCULAR HGB CONC 34.4 g/dl (32.0-36.5); PLATELET COUNT, AUTOMATED 787 10^3/uL (150-450); RED BLOOD COUNT 3.37 10^6/uL (4.30-6.10); WHITE BLOOD COUNT 12.1 10^3/uL (4.0-10.0)
[2024-01-14 06:44] LABS: ALBUMIN 1.4 G/DL (3.2-5.2); ALKALINE PHOSPHATASE 416 U/L (40-129); ALT/SGPT 21 U/L (7.0-40); AST/SGOT 30 U/L (<34); BILIRUBIN,TOTAL 0.4 MG/DL (0.3-1.2); BLOOD UREA NITROGEN 10 MG/DL (9-23); CALCIUM LEVEL 8.1 MG/DL (8.3-10.6); CARBON DIOXIDE LEVEL 20 MMOL/L (20-31); CHLORIDE LEVEL 112 MMOL/L (98-107); CREATININE FOR GFR 0.62 MG/DL (0.70-1.30); GLOMERULAR FILTRATION RATE > 60.0 (>49); GLUCOSE, FASTING 86 MG/DL (74-106); MAGNESIUM LEVEL 1.6 MG/DL (1.8-2.4); POTASSIUM SERUM 3.4 MMOL/L (3.5-5.1); SODIUM LEVEL 140 MMOL/L (136-145); TOTAL PROTEIN 4.7 G/DL (5.7-8.2)
[2024-01-14 07:05] LABS: ANISOCYTOSIS 1+; ATYPICAL LYMPH 1 % (0-5); EOSINOPHILS 2 % (0-3); LYMPHOCYTES 10 % (16-44); METAMYELOCYTES 2 % (0-0); MONOCYTES 8 % (0-5); NEUTROPHILS 75 % (28-66); PLATELET ESTIMATE INCREASED (NORMAL)
[2024-01-14 07:06] LABS: POLYCHROMASIA 1+
[2024-01-14] MEDS: POTASSIUM CHLORIDE 10MEQ SR TABLET PO ONE (10:28)
[2024-01-14] MEDS: MAGNESIUM OXIDE 400MG TAB (MAG-OX) PO SCH (10:29)
[2024-01-14] MEDS: MAG SULF 1GM/100ML (MAG RUN) 1 GM in IV 1 EA IV ONE (10:30)
[2024-01-14] MEDS ORDERED: LIDOCAINE 2% MDV 20ML VIAL As Ordered ONE (14:05)
[2024-01-14] MEDS ORDERED: ROCURONIUM BROMIDE 50MG/5ML VIAL As Ordered ONE (14:05)
[2024-01-14] MEDS ORDERED: propofoL 200 MG/20 ML VIAL As Ordered ONE (14:05)
[2024-01-14] MEDS ORDERED: SUGAMMADEX SODIUM 500 MG/5 ML VIAL (BRIDION) As Ordered ONE (14:05)
[2024-01-14] MEDS ORDERED: fentaNYL 100 MCG/2 ML INJECTION As Ordered ONE (14:05)
[2024-01-14] MEDS ORDERED: PHENYLEPHRINE 10MG/ML 1ML VIAL As Ordered ONE (14:58)
[2024-01-14] MEDS: EPINEPHrine 1MG/10ML SYRINGE 1.5IN As Ordered ONE (15:27)
[2024-01-14] MEDS: LIDOCAINE 1% SDV 30ML VIAL As Ordered ONE (15:28)
[2024-01-14] MEDS: THROMBIN 5,000 UNITS VIAL As Ordered ONE (15:28)
[2024-01-14] MEDS ORDERED: IPRATROPIUM 0.5MG/ALBUTEROL 2.5MG INH SOL UD 3ML (DUONEB) As Ordered ONE (15:43)
[2024-01-14] MEDS: IPRATROPIUM 0.5MG/ALBUTEROL 2.5MG INH SOL UD 3ML (DUONEB) NEB ONE (15:45)
[2024-01-14] MEDS: SODIUM CHLORIDE 0.9% INJ 10 ML SYR IV PRN (21:46)
[2024-01-15 01:00] VITALS: BP 166/89; TEMP 98.8; O2SAT 94
[2024-01-15 05:43] LABS: BASO # 0.1 10^3/uL (0.0-0.2); BASO % 0.6 % (0.0-1.0); EOS # 0.2 10^3/uL (0.0-0.5); EOS % 1.6 % (0.0-3.0); HEMATOCRIT 33.9 % (42.0-52.0); HEMOGLOBIN 11.3 g/dl (13.5-17.5); LYMPH # 2.2 10^3/uL (1.5-5.0); MEAN CORPUSCULAR HEMOGLOBIN 31.9 pg (27.0-33.0); MEAN CORPUSCULAR HGB CONC 33.3 g/dl (32.0-36.5); MEAN CORPUSCULAR VOLUME 95.8 fl (80.0-96.0); MONO # 1.6 10^3/uL (0.0-0.8); MONO % 10.8 % (2.0-8.0); NEUTROPHILS # 9.9 10^3/uL (1.5-8.5); NEUTROPHILS % 68.8 % (36.0-66.0); PLATELET COUNT, AUTOMATED 801 10^3/uL (150-450); RED BLOOD COUNT 3.54 10^6/uL (4.30-6.10); WHITE BLOOD COUNT 14.4 10^3/uL (4.0-10.0)
[2024-01-15 06:02] LABS: ALBUMIN 1.6 G/DL (3.2-5.2); ALKALINE PHOSPHATASE 354 U/L (40-129); ALT/SGPT 25 U/L (7.0-40); AST/SGOT 33 U/L (<34); BILIRUBIN,TOTAL 0.5 MG/DL (0.3-1.2); BLOOD UREA NITROGEN 10 MG/DL (9-23); CALCIUM LEVEL 8.1 MG/DL (8.3-10.6); CARBON DIOXIDE LEVEL 21 MMOL/L (20-31); CHLORIDE LEVEL 111 MMOL/L (98-107); CREATININE FOR GFR 0.63 MG/DL (0.70-1.30); GLOMERULAR FILTRATION RATE > 60.0 (>49); GLUCOSE, FASTING 84 MG/DL (74-106); MAGNESIUM LEVEL 1.6 MG/DL (1.8-2.4); POTASSIUM SERUM 3.8 MMOL/L (3.5-5.1); SODIUM LEVEL 141 MMOL/L (136-145); TOTAL PROTEIN 5.1 G/DL (5.7-8.2)
[2024-01-15 08:00] VITALS: BP 161/88; TEMP 98.8; O2SAT 96
[2024-01-15] MEDS: MAG SULF 1GM/100ML (MAG RUN) 1 GM in IV 1 EA IV SCH (08:18)
[2024-01-15 13:00] VITALS: BP 167/89; TEMP 98.2; O2SAT 93
[2024-01-15 17:00] VITALS: BP 168/92; TEMP 98.2; O2SAT 95
[2024-01-15 20:00] VITALS: BP 163/85; TEMP 98.2; O2SAT 92
[2024-01-16 04:42] VITALS: BP 154/80; TEMP 98.8; O2SAT 95
[2024-01-16 05:39] LABS: BASO # 0.1 10^3/uL (0.0-0.2); BASO % 1.2 % (0.0-1.0); EOS # 0.3 10^3/uL (0.0-0.5); EOS % 2.2 % (0.0-3.0); HEMATOCRIT 35.4 % (42.0-52.0); HEMOGLOBIN 11.8 g/dl (13.5-17.5); LYMPH # 2.6 10^3/uL (1.5-5.0); LYMPH % 22.2 % (24.0-44.0); MEAN CORPUSCULAR HEMOGLOBIN 31.7 pg (27.0-33.0); MEAN CORPUSCULAR HGB CONC 33.3 g/dl (32.0-36.5); MEAN CORPUSCULAR VOLUME 95.2 fl (80.0-96.0); MONO # 1.6 10^3/uL (0.0-0.8); MONO % 13.8 % (2.0-8.0); NEUTROPHILS # 6.6 10^3/uL (1.5-8.5); NEUTROPHILS % 56.8 % (36.0-66.0); PLATELET COUNT, AUTOMATED 704 10^3/uL (150-450); RED BLOOD COUNT 3.72 10^6/uL (4.30-6.10); WHITE BLOOD COUNT 11.7 10^3/uL (4.0-10.0)
[2024-01-16 07:30] LABS: ALBUMIN 1.7 G/DL (3.2-5.2); ALKALINE PHOSPHATASE 283 U/L (40-129); ALT/SGPT 29 U/L (7.0-40); AST/SGOT 41 U/L (<34); BILIRUBIN,TOTAL 0.6 MG/DL (0.3-1.2); BLOOD UREA NITROGEN 9 MG/DL (9-23); CALCIUM LEVEL 8.3 MG/DL (8.3-10.6); CARBON DIOXIDE LEVEL 26 MMOL/L (20-31); CHLORIDE LEVEL 110 MMOL/L (98-107); CREATININE FOR GFR 0.66 MG/DL (0.70-1.30); GLOMERULAR FILTRATION RATE > 60.0 (>49); GLUCOSE, FASTING 95 MG/DL (74-106); MAGNESIUM LEVEL 1.5 MG/DL (1.8-2.4); POTASSIUM SERUM 3.4 MMOL/L (3.5-5.1); SODIUM LEVEL 140 MMOL/L (136-145)
[2024-01-16 08:00] VITALS: BP 170/93; TEMP 97.5; O2SAT 96
[2024-01-16 12:00] VITALS: BP 152/91; TEMP 98.2; O2SAT 92
[2024-01-16] MEDS: LOPERAMIDE 2 MG CAPLET PO PRN (13:27)
[2024-01-16] MEDS: POTASSIUM CHLORIDE 10MEQ SR TABLET PO ONE (13:27)
[2024-01-16] MEDS: MAG SULF 1GM/100ML (MAG RUN) 1 GM in IV 1 EA IV SCH (13:27)
[2024-01-16 13:32] LABS: QuantiFERON-TB Gold Plus NEGATIVE (NEGATIVE)
[2024-01-16 16:00] VITALS: BP 138/75; TEMP 97.7; O2SAT 96
[2024-01-16 20:20] VITALS: BP 154/80; TEMP 98.4; O2SAT 95
[2024-01-17] VITALS (7 sets, daily range): BP systolic 134–168; BP diastolic 81–85; TEMP 97.9–99.1; O2SAT 90–94
[2024-01-17 06:13] LABS: BASO # 0.2 10^3/uL (0.0-0.2); BASO % 1.3 % (0.0-1.0); EOS # 0.3 10^3/uL (0.0-0.5); EOS % 2.1 % (0.0-3.0); HEMATOCRIT 33.6 % (42.0-52.0); HEMOGLOBIN 11.4 g/dl (13.5-17.5); LYMPH # 2.6 10^3/uL (1.5-5.0); LYMPH % 21.8 % (24.0-44.0); MEAN CORPUSCULAR HEMOGLOBIN 32.3 pg (27.0-33.0); MEAN CORPUSCULAR HGB CONC 33.9 g/dl (32.0-36.5); MEAN CORPUSCULAR VOLUME 95.2 fl (80.0-96.0); MONO # 1.7 10^3/uL (0.0-0.8); MONO % 14.1 % (2.0-8.0); NEUTROPHILS # 6.6 10^3/uL (1.5-8.5); NEUTROPHILS % 56.8 % (36.0-66.0); PLATELET COUNT, AUTOMATED 695 10^3/uL (150-450); RED BLOOD COUNT 3.53 10^6/uL (4.30-6.10); WHITE BLOOD COUNT 11.7 10^3/uL (4.0-10.0)
[2024-01-17 06:48] LABS: ALBUMIN 1.7 G/DL (3.2-5.2); ALKALINE PHOSPHATASE 245 U/L (40-129); ALT/SGPT 26 U/L (7.0-40); AST/SGOT 24 U/L (<34); BILIRUBIN,TOTAL 0.5 MG/DL (0.3-1.2); BLOOD UREA NITROGEN 10 MG/DL (9-23); CALCIUM LEVEL 8.5 MG/DL (8.3-10.6); CARBON DIOXIDE LEVEL 27 MMOL/L (20-31); CHLORIDE LEVEL 104 MMOL/L (98-107); CREATININE FOR GFR 0.71 MG/DL (0.70-1.30); GLOMERULAR FILTRATION RATE > 60.0 (>49); GLUCOSE, FASTING 88 MG/DL (74-106); MAGNESIUM LEVEL 1.7 MG/DL (1.8-2.4); POTASSIUM SERUM 4.1 MMOL/L (3.5-5.1); SODIUM LEVEL 139 MMOL/L (136-145); TOTAL PROTEIN 5.4 G/DL (5.7-8.2)
[2024-01-17] MEDS: MAG SULF 1GM/100ML (MAG RUN) 1 GM in IV 1 EA IV SCH (09:46)
[2024-01-17] MEDS: ACETAMINOPHEN 325 MG TAB PO PRN (09:47)
[2024-01-17] MEDS: metOLazone 2.5 MG TAB PO ONE (16:06)
[2024-01-17] MEDS: traMADol 50 MG TAB PO ONE (18:21)
[2024-01-18 04:00] VITALS: BP 118/71; TEMP 97.9; O2SAT 92
[2024-01-18 06:25] LABS: BASO # 0.2 10^3/uL (0.0-0.2); BASO % 1.2 % (0.0-1.0); EOS # 0.3 10^3/uL (0.0-0.5); EOS % 1.8 % (0.0-3.0); HEMATOCRIT 33.3 % (42.0-52.0); HEMOGLOBIN 11.3 g/dl (13.5-17.5); LYMPH # 2.3 10^3/uL (1.5-5.0); LYMPH % 14.2 % (24.0-44.0); MEAN CORPUSCULAR HEMOGLOBIN 32.1 pg (27.0-33.0); MEAN CORPUSCULAR HGB CONC 33.9 g/dl (32.0-36.5); MEAN CORPUSCULAR VOLUME 94.6 fl (80.0-96.0); MONO # 2.2 10^3/uL (0.0-0.8); MONO % 13.7 % (2.0-8.0); NEUTROPHILS # 10.5 10^3/uL (1.5-8.5); NEUTROPHILS % 65.4 % (36.0-66.0); PLATELET COUNT, AUTOMATED 657 10^3/uL (150-450); RED BLOOD COUNT 3.52 10^6/uL (4.30-6.10)
[2024-01-18 06:55] LABS: ALBUMIN 1.8 G/DL (3.2-5.2); ALKALINE PHOSPHATASE 227 U/L (40-129); ALT/SGPT 21 U/L (7.0-40); AST/SGOT 16 U/L (<34); BILIRUBIN,TOTAL 0.6 MG/DL (0.3-1.2); BLOOD UREA NITROGEN 10 MG/DL (9-23); CALCIUM LEVEL 8.7 MG/DL (8.3-10.6); CARBON DIOXIDE LEVEL 28 MMOL/L (20-31); CHLORIDE LEVEL 99 MMOL/L (98-107); CREATININE FOR GFR 0.69 MG/DL (0.70-1.30); GLOMERULAR FILTRATION RATE > 60.0 (>49); GLUCOSE, FASTING 108 MG/DL (74-106); MAGNESIUM LEVEL 1.7 MG/DL (1.8-2.4); POTASSIUM SERUM 3.8 MMOL/L (3.5-5.1); SODIUM LEVEL 136 MMOL/L (136-145); TOTAL PROTEIN 5.7 G/DL (5.7-8.2)
[2024-01-18 08:00] VITALS: BP 123/70; TEMP 98.4; O2SAT 93
[2024-01-18] MEDS: MAGNESIUM OXIDE 400MG TAB (MAG-OX) PO SCH (09:28)
[2024-01-18 12:00] VITALS: BP 126/74; TEMP 98.1; O2SAT 92
[2024-01-18] MEDS: LIDOCAINE 5% (LIDODERM) PATCH TD SCH (12:02)
[2024-01-18] MEDS: metOLazone 5 MG TAB PO ONE (15:46)
[2024-01-18 16:00] VITALS: BP 136/76; TEMP 98.2; O2SAT 92
[2024-01-18] MEDS: FUROSEMIDE 40MG/4ML VIAL IV SCH (16:38)
[2024-01-18 20:00] VITALS: BP 139/79; TEMP 98.2; O2SAT 94
[2024-01-18 23:26] VITALS: BP 134/81; TEMP 98.4; O2SAT 97
[2024-01-19 03:57] VITALS: BP 121/76; TEMP 98.2; O2SAT 96
[2024-01-19 06:10] LABS: HEMATOCRIT 37.6 % (42.0-52.0); HEMOGLOBIN 12.4 g/dl (13.5-17.5); MEAN CORPUSCULAR HEMOGLOBIN 31.6 pg (27.0-33.0); MEAN CORPUSCULAR VOLUME 95.9 fl (80.0-96.0); PLATELET COUNT, AUTOMATED 629 10^3/uL (150-450); RED BLOOD COUNT 3.92 10^6/uL (4.30-6.10); WHITE BLOOD COUNT 14.8 10^3/uL (4.0-10.0)
[2024-01-19 06:56] LABS: ATYPICAL LYMPH 4 % (0-5); BASOPHILS 2 % (0-1); EOSINOPHILS 1 % (0-3); LYMPHOCYTES 13 % (16-44); METAMYELOCYTES 2 % (0-0); MONOCYTES 9 % (0-5); NEUTROPHILS 67 % (28-66)
[2024-01-19 06:57] LABS: ANISOCYTOSIS 2+; PLATELET ESTIMATE INCREASED (NORMAL)
[2024-01-19 06:58] LABS: POIKILOCYTOSIS 1+
[2024-01-19 06:59] LABS: STOMATOCYTES 1+
[2024-01-19 07:00] LABS: POLYCHROMASIA 1+
[2024-01-19 07:08] LABS: ALKALINE PHOSPHATASE 220 U/L (40-129); ALT/SGPT 16 U/L (7.0-40); AST/SGOT 14 U/L (<34); BILIRUBIN,TOTAL 0.6 MG/DL (0.3-1.2); BLOOD UREA NITROGEN 14 MG/DL (9-23); CALCIUM LEVEL 9.4 MG/DL (8.3-10.6); CARBON DIOXIDE LEVEL 31 MMOL/L (20-31); CREATININE FOR GFR 0.83 MG/DL (0.70-1.30); GLOMERULAR FILTRATION RATE > 60.0 (>49); GLUCOSE, FASTING 85 MG/DL (74-106); MAGNESIUM LEVEL 1.8 MG/DL (1.8-2.4)
[2024-01-19 07:13] LABS: TOTAL PROTEIN 6.1 G/DL (5.7-8.2)
[2024-01-19 07:14] LABS: CHLORIDE LEVEL 95 MMOL/L (98-107); SODIUM LEVEL 134 MMOL/L (136-145)
[2024-01-19 08:00] VITALS: BP 121/76; TEMP 98.4; O2SAT 94
[2024-01-19 12:00] VITALS: BP 148/81; TEMP 98.1; O2SAT 95
[2024-01-19 16:00] VITALS: BP 124/77; TEMP 98.2; O2SAT 92
[2024-01-19] MEDS: D5W/0.9% SODIUM CHLORIDE 1,000 ML IV SCH (16:59)
[2024-01-19 20:26] VITALS: BP 124/76; TEMP 98.6; O2SAT 92
[2024-01-19 23:50] VITALS: O2SAT 86
[2024-01-20] VITALS (7 sets, daily range): BP systolic 101–140; BP diastolic 68–74; TEMP 97.9–98.8; O2SAT 89–95
[2024-01-20 06:15] LABS: ALBUMIN 1.8 G/DL (3.2-5.2); ALKALINE PHOSPHATASE 183 U/L (40-129); ALT/SGPT 19 U/L (7.0-40); AST/SGOT 26 U/L (<34); BILIRUBIN,TOTAL 0.3 MG/DL (0.3-1.2); BLOOD UREA NITROGEN 19 MG/DL (9-23); CARBON DIOXIDE LEVEL 30 MMOL/L (20-31); CHLORIDE LEVEL 98 MMOL/L (98-107); CREATININE FOR GFR 0.91 MG/DL (0.70-1.30); GLOMERULAR FILTRATION RATE > 60.0 (>49); GLUCOSE, FASTING 95 MG/DL (74-106); POTASSIUM SERUM 3.7 MMOL/L (3.5-5.1); SODIUM LEVEL 133 MMOL/L (136-145); TOTAL PROTEIN 5.9 G/DL (5.7-8.2)
[2024-01-20] MEDS: CEPACOL LOZENGE PO PRN (17:31)
[2024-01-21] VITALS (8 sets, daily range): BP systolic 124–147; BP diastolic 66–84; TEMP 98.1–98.8; O2SAT 86–96
[2024-01-21 08:01] LABS: BASO # 0.2 10^3/uL (0.0-0.2); BASO % 2.3 % (0.0-1.0); EOS # 0.4 10^3/uL (0.0-0.5); EOS % 3.7 % (0.0-3.0); HEMATOCRIT 34.6 % (42.0-52.0); HEMOGLOBIN 11.7 g/dl (13.5-17.5); LYMPH # 2.6 10^3/uL (1.5-5.0); LYMPH % 25.8 % (24.0-44.0); MEAN CORPUSCULAR HEMOGLOBIN 32.1 pg (27.0-33.0); MEAN CORPUSCULAR HGB CONC 33.8 g/dl (32.0-36.5); MEAN CORPUSCULAR VOLUME 94.8 fl (80.0-96.0); MONO # 1.6 10^3/uL (0.0-0.8); MONO % 15.9 % (2.0-8.0); NEUTROPHILS # 4.7 10^3/uL (1.5-8.5); NEUTROPHILS % 46.3 % (36.0-66.0); PLATELET COUNT, AUTOMATED 476 10^3/uL (150-450); RED BLOOD COUNT 3.65 10^6/uL (4.30-6.10)
[2024-01-21 08:23] LABS: ALBUMIN 1.9 G/DL (3.2-5.2); ALKALINE PHOSPHATASE 169 U/L (40-129); ALT/SGPT 25 U/L (7.0-40); AST/SGOT 33 U/L (<34); BILIRUBIN,TOTAL 0.4 MG/DL (0.3-1.2); BLOOD UREA NITROGEN 14 MG/DL (9-23); CALCIUM LEVEL 9.2 MG/DL (8.3-10.6); CARBON DIOXIDE LEVEL 29 MMOL/L (20-31); CHLORIDE LEVEL 100 MMOL/L (98-107); CREATININE FOR GFR 0.78 MG/DL (0.70-1.30); GLOMERULAR FILTRATION RATE > 60.0 (>49); GLUCOSE, FASTING 93 MG/DL (74-106); POTASSIUM SERUM 4.2 MMOL/L (3.5-5.1); SODIUM LEVEL 136 MMOL/L (136-145); TOTAL PROTEIN 5.9 G/DL (5.7-8.2)
[2024-01-21] MEDS: FUROSEMIDE 40 MG TAB PO SCH (12:29)
[2024-01-22] VITALS: BP 130/81; TEMP 98.4; O2SAT 95
[2024-01-22 04:27] VITALS: BP 131/82; TEMP 98.8; O2SAT 94
[2024-01-22 08:00] VITALS: BP 124/68; TEMP 98.4; O2SAT 92
[2024-01-22 08:14] LABS: HEMATOCRIT 37.6 % (42.0-52.0); HEMOGLOBIN 12.6 g/dl (13.5-17.5); MEAN CORPUSCULAR HEMOGLOBIN 31.6 pg (27.0-33.0); MEAN CORPUSCULAR HGB CONC 33.5 g/dl (32.0-36.5); MEAN CORPUSCULAR VOLUME 94.2 fl (80.0-96.0); PLATELET COUNT, AUTOMATED 477 10^3/uL (150-450); RED BLOOD COUNT 3.99 10^6/uL (4.30-6.10); WHITE BLOOD COUNT 11.4 10^3/uL (4.0-10.0)
[2024-01-22 08:35] LABS: BLOOD UREA NITROGEN 15 MG/DL (9-23); CALCIUM LEVEL 9.7 MG/DL (8.3-10.6); CARBON DIOXIDE LEVEL 30 MMOL/L (20-31); CHLORIDE LEVEL 96 MMOL/L (98-107); CREATININE FOR GFR 0.81 MG/DL (0.70-1.30); GLOMERULAR FILTRATION RATE > 60.0 (>49); GLUCOSE, FASTING 93 MG/DL (74-106); POTASSIUM SERUM 4.2 MMOL/L (3.5-5.1); SODIUM LEVEL 133 MMOL/L (136-145)
[2024-01-22 08:45] LABS: ATYPICAL LYMPH 2 % (0-5); BASOPHILS 2 % (0-1); EOSINOPHILS 5 % (0-3); LYMPHOCYTES 26 % (16-44); METAMYELOCYTES 2 % (0-0); MONOCYTES 13 % (0-5); MYELOCYTES 1 % (0-0); NEUTROPHILS 47 % (28-66); PLATELET ESTIMATE INCREASED (NORMAL)
[2024-01-22 12:00] VITALS: BP 136/78; TEMP 97.9; O2SAT 97
[2024-01-22 20:58] VITALS: O2SAT 92
[2024-01-23 00:03] VITALS: O2SAT 92
[2024-01-23 04:00] VITALS: BP 131/75; TEMP 97.3; O2SAT 96
[2024-01-23] MEDS: FUROSEMIDE 20 MG TAB PO SCH (08:33)
[2024-01-24 04:00] VITALS: BP 136/78; TEMP 98.2; O2SAT 99
[2024-01-25 05:30] VITALS: BP 139/81; TEMP 98.2; O2SAT 97
[2024-01-26 04:00] VITALS: BP 150/83; TEMP 97.5; O2SAT 96
[2024-01-26 10:10] VITALS: BP 104/73
[2024-01-26] MEDS ORDERED: ALBUTEROL SULFATE 2.5MG/0.5ML INH NEB SOLN NEB PRN (10:10)
[2024-01-27 04:00] VITALS: BP 135/75; TEMP 97.9; O2SAT 95
[2024-01-28 04:01] VITALS: BP 156/94; TEMP 97.2; O2SAT 95
[2024-01-28] MEDS: PANTOPRAZOLE 40MG TAB (PROTONIX) PO SCH (08:43)
[2024-01-28 08:45] VITALS: BP 161/95
[2024-01-28] MEDS ORDERED: MULT1TAB8 PO (10:55)
[2024-01-28] MEDS ORDERED: FURO20TA2 PO (10:55)
[2024-01-28] MEDS ORDERED: PANT40TA29 PO (10:55)
[2024-01-28] MEDS ORDERED: MAGN400T2 PO (10:55)
[2024-01-28] MEDS ORDERED: RISATAB3 PO (10:56)
== END 2024-01-28 18:23 | disposition home or self-care (01) | DRG 896 ==
LOC: M ED 03:28 → EDBD 03:28 → M ED INP 08:50 → M PCU 11:25 → M ICU 12-31 08:33 → M MS4PR 01-11 23:28 → M MSPAV 01-13 18:01
PROVIDERS: ADMIT Internal Medicine; ATTEND Internal Medicine
PROC: B246ZZZ Ultrasonography of Right and Left Heart (ICD-10-PCS; principal; 2023-12-29)
PROC: 0B9J8ZX Drainage of Left Lower Lung Lobe, Via Natural or Artificial Opening Endoscopic, Diagnostic (ICD-10-PCS; 2024-01-14)
PROC: 0B9G8ZX Drainage of Left Upper Lung Lobe, Via Natural or Artificial Opening Endoscopic, Diagnostic (ICD-10-PCS; 2024-01-14)
DX: F10.231 Alcohol dependence with withdrawal delirium (principal); A41.9 Sepsis, unspecified organism; R65.21 Severe sepsis with septic shock; J69.0 Pneumonitis due to inhalation of food and vomit; J96.01 Acute respiratory failure with hypoxia; J85.0 Gangrene and necrosis of lung; G93.41 Metabolic encephalopathy; I50.33 Acute on chronic diastolic (congestive) heart failure; K56.7 Ileus, unspecified; E87.20 Acidosis, unspecified; E87.0 Hyperosmolality and hypernatremia; N17.9 Acute kidney failure, unspecified; B37.0 Candidal stomatitis; J93.9 Pneumothorax, unspecified; K90.89 Other intestinal malabsorption; I47.20 Ventricular tachycardia, unspecified; B37.81 Candidal esophagitis; K20.90 Esophagitis, unspecified without bleeding; R07.89 Other chest pain; E83.42 Hypomagnesemia; M79.89 Other specified soft tissue disorders; D69.59 Other secondary thrombocytopenia; E83.39 Other disorders of phosphorus metabolism; E87.6 Hypokalemia; E87.79 Other fluid overload; M62.838 Other muscle spasm; R07.9 Chest pain, unspecified; K76.0 Fatty (change of) liver, not elsewhere classified; D70.9 Neutropenia, unspecified; K52.9 Noninfective gastroenteritis and colitis, unspecified; F39 Unspecified mood [affective] disorder; R13.10 Dysphagia, unspecified; M54.9 Dorsalgia, unspecified; G89.29 Other chronic pain; E16.2 Hypoglycemia, unspecified; Z88.8 Allergy status to other drugs, medicaments and biological substances

== ENCOUNTER → 2024-02-09 | Outpatient (REF) | payer OTHER ==
[~2024-02-09] MED LIST: FURO20TA2 PO; MAGN400T2 PO; MULT1TAB8 PO; PANT40TA29 PO; RISATAB3 PO
[2024-02-09 18:25] LABS: BASO # 0.1 10^3/uL (0.0-0.2); BASO % 1.1 % (0.0-1.0); EOS # 0.3 10^3/uL (0.0-0.5); HEMOGLOBIN 13.3 g/dl (13.5-17.5); LYMPH % 26.2 % (24.0-44.0); MEAN CORPUSCULAR HEMOGLOBIN 31.9 pg (27.0-33.0); MEAN CORPUSCULAR HGB CONC 33.3 g/dl (32.0-36.5); MEAN CORPUSCULAR VOLUME 95.9 fl (80.0-96.0); MONO # 1.3 10^3/uL (0.0-0.8); MONO % 11.3 % (2.0-8.0); NEUTROPHILS # 6.5 10^3/uL (1.5-8.5); NEUTROPHILS % 57.7 % (36.0-66.0); PLATELET COUNT, AUTOMATED 300 10^3/uL (150-450); RED BLOOD COUNT 4.17 10^6/uL (4.30-6.10); WHITE BLOOD COUNT 11.3 10^3/uL (4.0-10.0)
[2024-02-09 18:52] LABS: ALBUMIN 3.3 G/DL (3.2-5.2); ALKALINE PHOSPHATASE 142 U/L (40-129); ALT/SGPT 18 U/L (7.0-40); AST/SGOT 30 U/L (<34); BILIRUBIN,TOTAL 0.5 MG/DL (0.3-1.2); BLOOD UREA NITROGEN 22 MG/DL (9-23); CALCIUM LEVEL 9.4 MG/DL (8.3-10.6); CARBON DIOXIDE LEVEL 22 MMOL/L (20-31); CHLORIDE LEVEL 99 MMOL/L (98-107); CHOLESTEROL LEVEL 243 MG/DL (<200); CHOLESTEROL RISK RATIO 4.12 (<5); CREATININE FOR GFR 1.11 MG/DL (0.70-1.30); GLOMERULAR FILTRATION RATE > 60.0 (>49); GLUCOSE, FASTING 85 MG/DL (74-106); HDL CHOLESTEROL 58.9 MG/DL (>40); LDL CHOLESTEROL 124.5 MG/DL (<100); NON-HDL-C 184.1 MG/DL; POTASSIUM SERUM 4.9 MMOL/L (3.5-5.1); SODIUM LEVEL 134 MMOL/L (136-145); TOTAL PROTEIN 7.5 G/DL (5.7-8.2); TRIGLYCERIDES LEVEL 298 MG/DL (<150)
[2024-02-09 18:54] LABS: FREE T4 1.24 NG/DL (0.89-1.76); THYROID STIMULATING HORMONE 6.153 uIU/ML (0.55-4.78)
== END ==
LOC: M SFHCCLAY 10:06
PROVIDERS: ATTEND Nurse Practitioner Family
DX: J85.0 Gangrene and necrosis of lung (principal); F10.10 Alcohol abuse, uncomplicated; R00.0 Tachycardia, unspecified; Z79.899 Other long term (current) drug therapy

== ENCOUNTER 2024-02-26 12:23 | Emergency (ER) | payer OTHER ==
[2024-02-26 13:25] LABS: BASO # 0.2 10^3/uL (0.0-0.2); EOS # 0.1 10^3/uL (0.0-0.5); EOS % 0.7 % (0.0-3.0); HEMATOCRIT 35.3 % (42.0-52.0); HEMOGLOBIN 11.7 g/dl (13.5-17.5); LYMPH # 2.8 10^3/uL (1.5-5.0); LYMPH % 18.4 % (24.0-44.0); MEAN CORPUSCULAR HEMOGLOBIN 32.2 pg (27.0-33.0); MEAN CORPUSCULAR HGB CONC 33.1 g/dl (32.0-36.5); MEAN CORPUSCULAR VOLUME 97.2 fl (80.0-96.0); MONO # 1.2 10^3/uL (0.0-0.8); MONO % 8.1 % (2.0-8.0); NEUTROPHILS # 10.6 10^3/uL (1.5-8.5); NEUTROPHILS % 69.8 % (36.0-66.0); PLATELET COUNT, AUTOMATED 567 10^3/uL (150-450); RED BLOOD COUNT 3.63 10^6/uL (4.30-6.10); WHITE BLOOD COUNT 15.2 10^3/uL (4.0-10.0)
[2024-02-26 13:48] LABS: CK-MB VALUE MASS < 1.0 NG/ML (<3.6)
[2024-02-26 13:50] LABS: BLOOD UREA NITROGEN 15 MG/DL (9-23); CALCIUM LEVEL 9.2 MG/DL (8.3-10.6); CARBON DIOXIDE LEVEL 21 MMOL/L (20-31); CHLORIDE LEVEL 107 MMOL/L (98-107); CREATININE FOR GFR 0.87 MG/DL (0.70-1.30); GLOMERULAR FILTRATION RATE > 60.0 (>49); GLUCOSE, FASTING 73 MG/DL (74-106); POTASSIUM SERUM 4.2 MMOL/L (3.5-5.1); SODIUM LEVEL 141 MMOL/L (136-145)
[2024-02-26 13:52] LABS: CPK CREATINE PHOSPHOKINASE 43 U/L (46-171); MB/CK RELATIVE INDEX 2.32 (< OR =4)
[2024-02-26 14:41] LABS: CK-MB VALUE MASS < 1.0 NG/ML (<3.6)
[2024-02-26 14:42] LABS: CPK CREATINE PHOSPHOKINASE 39 U/L (46-171); MB/CK RELATIVE INDEX 2.56 (< OR =4)
[2024-02-26 15:15] VITALS: O2SAT 96
[2024-02-26 16:20] VITALS: BP 140/76; TEMP 97.6; O2SAT 100
== END 2024-02-26 16:36 | disposition home or self-care (01) ==
LOC: EDBD 12:23 → M ED 12:23
DX: R07.9 Chest pain, unspecified (principal); I10 Essential (primary) hypertension; Z86.19 Personal history of other infectious and parasitic diseases; F10.10 Alcohol abuse, uncomplicated; Z79.899 Other long term (current) drug therapy; Z88.8 Allergy status to other drugs, medicaments and biological substances
CPT/HCPCS: 71045; 80048; 82550; 82553; 84484; 85025; 93005; 93041; 94760; 99285; G0463

== ENCOUNTER 2024-03-31 09:08 | Emergency (ER) | payer OTHER ==
[~2024-03-31] VITALS: Ht 144.8 cm; Wt 59.6 kg
[~2024-03-31 09:08] MED LIST changes: +MAGN400T35 PO; +TAMS1CAP17 PO
[2024-03-31] MEDS: fentaNYL 100 MCG/2 ML INJECTION IV ONE (10:09)
[2024-03-31 14:55] LABS: BASO # 0.1 10^3/uL (0.0-0.2); BASO % 1.5 % (0.0-1.0); EOS % 0.3 % (0.0-3.0); HEMATOCRIT 33.7 % (42.0-52.0); HEMOGLOBIN 11.3 g/dl (13.5-17.5); LYMPH % 17.2 % (24.0-44.0); MEAN CORPUSCULAR HEMOGLOBIN 30.8 pg (27.0-33.0); MEAN CORPUSCULAR HGB CONC 33.5 g/dl (32.0-36.5); MEAN CORPUSCULAR VOLUME 91.8 fl (80.0-96.0); MONO # 1.6 10^3/uL (0.0-0.8); MONO % 25.9 % (2.0-8.0); NEUTROPHILS # 3.3 10^3/uL (1.5-8.5); NEUTROPHILS % 54.8 % (36.0-66.0); PLATELET COUNT, AUTOMATED 415 10^3/uL (150-450); RED BLOOD COUNT 3.67 10^6/uL (4.30-6.10)
[2024-03-31 15:33] LABS: BLOOD UREA NITROGEN 24 MG/DL (9-23); CALCIUM LEVEL 9.3 MG/DL (8.3-10.6); CARBON DIOXIDE LEVEL 18 MMOL/L (20-31); CHLORIDE LEVEL 107 MMOL/L (98-107); CREATININE FOR GFR 1.19 MG/DL (0.70-1.30); GLOMERULAR FILTRATION RATE > 60.0 (>49); GLUCOSE, FASTING 77 MG/DL (74-106); POTASSIUM SERUM 4.6 MMOL/L (3.5-5.1); SODIUM LEVEL 139 MMOL/L (136-145)
[2024-03-31] MEDS: NS (Normal Saline) 0.9% 1,000 ML IV ONE (15:55)
[2024-03-31] MEDS: ACETAMINOPHEN 325 MG TAB PO ONE (17:00)
[2024-03-31 17:28] VITALS: BP 113/55; TEMP 99.2; O2SAT 100
== END 2024-03-31 17:35 | disposition home or self-care (01) ==
LOC: M ED 09:08 → EDBD 09:08 → M ED 17:35
DX: S39.012A Strain of muscle, fascia and tendon of lower back, initial encounter (principal); W01.0XXA Fall on same level from slipping, tripping and stumbling without subsequent striking against object, initial encounter; Y92.009 Unspecified place in unspecified non-institutional (private) residence as the place of occurrence of the external cause; Y93.89 Activity, other specified; Y99.9 Unspecified external cause status; K52.9 Noninfective gastroenteritis and colitis, unspecified; I10 Essential (primary) hypertension; F10.10 Alcohol abuse, uncomplicated; M50.322 Other cervical disc degeneration at C5-C6 level; M25.78 Osteophyte, vertebrae; M51.360 Other intervertebral disc degeneration, lumbar region with discogenic back pain only; M51.34 Other intervertebral disc degeneration, thoracic region; Z88.8 Allergy status to other drugs, medicaments and biological substances
CPT/HCPCS: 72125; 72128; 72131; 80048; 85025; 87324; 87507; 96374; 99285; J3010

== ENCOUNTER → 2024-04-30 | Outpatient (CLI) | payer OTHER | LOC: M CLY 15:25 | PROVIDERS: ATTEND Nurse Practitioner Family | DX: M79.89 Other specified soft tissue disorders (principal) ==

== ENCOUNTER → 2024-05-20 | Outpatient (REF) | payer OTHER ==
[~2024-05-20] MED LIST changes: +B-1100TA2 PO; +MULT400T10 PO; +NAPR-885 PO
[2024-05-20 17:18] LABS: INR 0.9; PROTHROMBIN TIME 12.5 SECONDS (12.5-14.5)
== END ==
LOC: M SFHCCLAY 10:04
PROVIDERS: ATTEND Nurse Practitioner Family
DX: Z01.818 Encounter for other preprocedural examination (principal)

== ENCOUNTER → 2024-05-20 | Outpatient (CLI) | payer OTHER ==
[~2024-05-20] MED LIST changes: +CIPR-249 PO; +NEOM28OI EXT; +NITR100C2; +OXYB5TAB14 PO
== END ==
LOC: M CLY 10:32
PROVIDERS: ATTEND Urology
DX: Z01.818 Encounter for other preprocedural examination (principal)

== ENCOUNTER → 2024-05-21 | Outpatient (REF) | payer OTHER ==
[~2024-05-21] MED LIST changes: -CIPR-249 PO; -NEOM28OI EXT; -NITR100C2; -OXYB5TAB14 PO
[2024-05-21 18:24] LABS: APPEARANCE, URINE CLOUDY (CLEAR); BACTERIA, URINE AUTO NEGATIVE (NEGATIVE); BILIRUBIN, URINE AUTO NEGATIVE (NEGATIVE); BLOOD, URINE BLOOD 2+ (NEGATIVE); COLOR, URINE YELLOW (YELLOW); GLUCOSE, URINE (UA) AUTO NEGATIVE (NEGATIVE); KETONE, URINE AUTO NEGATIVE (NEGATIVE); LEUKOCYTE ESTERASE, URINE AUTO 3+ (NEGATIVE); MUCUS, URINE SMALL (NEGATIVE); NITRITE, URINE AUTO NEGATIVE (NEGATIVE); PROTEIN, URINE AUTO 2+ mg/dL (NEGATIVE); RBC, URINE AUTO TNTC /HPF (0-3); SPECIFIC GRAVITY URINE AUTO 1.017 (1.002-1.035); SQUAMOUS EPITHELIAL CELL UR AU 0 /HPF (0-6); UROBILINOGEN, URINE AUTO 0.2 mg/dL (0.0-2.0); WBC, URINE AUTO 125 /HPF (0-3)
== END ==
LOC: M LAB REF 17:08 → M SMT 17:08
PROVIDERS: ATTEND Urology
DX: R33.9 Retention of urine, unspecified (principal)

== ENCOUNTER 2024-05-27 11:40 | Emergency (ER) | payer OTHER ==
[~2024-05-27] VITALS: Ht 144.8 cm; Wt 64.7 kg
[2024-05-27] MEDS ORDERED: RISATAB3 PO (11:48)
[2024-05-27] MEDS ORDERED: NITR100C2 (11:48)
[2024-05-27] MEDS: LIDOCAINE 2% 5ML JELLY UROJET TOP PRN (13:04)
[2024-05-27 13:38] LABS: BASO # 0.1 10^3/uL (0.0-0.2); BASO % 0.9 % (0.0-1.0); EOS # 0.2 10^3/uL (0.0-0.5); EOS % 2.1 % (0.0-3.0); HEMATOCRIT 33.6 % (42.0-52.0); HEMOGLOBIN 11.1 g/dl (13.5-17.5); LYMPH % 17.9 % (24.0-44.0); MEAN CORPUSCULAR VOLUME 90.8 fl (80.0-96.0); MONO # 1.4 10^3/uL (0.0-0.8); MONO % 12.8 % (2.0-8.0); NEUTROPHILS # 7.2 10^3/uL (1.5-8.5); PLATELET COUNT, AUTOMATED 303 10^3/uL (150-450); WHITE BLOOD COUNT 11.1 10^3/uL (4.0-10.0)
[2024-05-27 13:41] LABS: CK-MB VALUE MASS < 1.0 NG/ML (<3.6)
[2024-05-27] MEDS: NEOSPORIN TOP OINT 15GM TOP ONE (13:41)
[2024-05-27 13:42] LABS: LIPASE 22 U/L (12-53)
[2024-05-27 13:43] LABS: CPK CREATINE PHOSPHOKINASE 22 U/L (46-171); MB/CK RELATIVE INDEX 4.54 (< OR =4)
[2024-05-27 13:44] LABS: ALBUMIN 3.2 G/DL (3.2-5.2); ALKALINE PHOSPHATASE 76 U/L (40-129); ALT/SGPT 11 U/L (7.0-40); AST/SGOT 10 U/L (<34); BILIRUBIN,DIRECT 0.1 MG/DL (<0.4); BILIRUBIN,TOTAL 0.3 MG/DL (0.3-1.2); BLOOD UREA NITROGEN 25 MG/DL (9-23); CALCIUM LEVEL 9.4 MG/DL (8.3-10.6); CARBON DIOXIDE LEVEL 27 MMOL/L (20-31); CHLORIDE LEVEL 107 MMOL/L (98-107); GLOMERULAR FILTRATION RATE > 90.0 (>49); GLUCOSE, FASTING 83 MG/DL (74-106); POTASSIUM SERUM 5.1 MMOL/L (3.5-5.1); SODIUM LEVEL 143 MMOL/L (136-145); TOTAL PROTEIN 6.2 G/DL (5.7-8.2)
[2024-05-27 14:31] LABS: CK-MB VALUE MASS < 1.0 NG/ML (<3.6)
[2024-05-27 14:32] LABS: CPK CREATINE PHOSPHOKINASE 24 U/L (46-171); MB/CK RELATIVE INDEX 4.16 (< OR =4)
[2024-05-27] MEDS ORDERED: NEOM28OI EXT (14:56)
[2024-05-27 15:10] VITALS: O2SAT 97
[2024-05-27 15:14] VITALS: BP 144/68; TEMP 97.9
== END 2024-05-27 15:25 | disposition home or self-care (01) ==
LOC: M ED 11:40 → EDBD 11:40 → M ED 15:25
DX: N34.2 Other urethritis (principal); R07.9 Chest pain, unspecified; Z96.0 Presence of urogenital implants; I12.0 Hypertensive chronic kidney disease with stage 5 chronic kidney disease or end stage renal disease; Z87.442 Personal history of urinary calculi; I73.00 Raynaud's syndrome without gangrene; E78.5 Hyperlipidemia, unspecified; Z88.8 Allergy status to other drugs, medicaments and biological substances; Z79.899 Other long term (current) drug therapy

== ENCOUNTER 2024-05-31 07:28 | Day surgery (SDC) | payer OTHER ==
[~2024-05-31] VITALS: Ht 144.8 cm; Wt 62.1 kg
[~2024-05-31 07:28] MED LIST changes: +NEOM28OI EXT; +NITR100C2
[2024-05-31] MEDS ORDERED: LR 1,000 ML IV SCH ×2 (07:35→09:45)
[2024-05-31] MEDS ORDERED: LIDOCAINE 2% 100MG/5ML SDV (FOR ANES.) As Ordered ONE (07:47)
[2024-05-31] MEDS ORDERED: propofoL 200 MG/20 ML VIAL As Ordered ONE (07:47)
[2024-05-31] MEDS ORDERED: ONDANSETRON 4MG 2ML VIAL As Ordered ONE (07:47)
[2024-05-31] MEDS ORDERED: MIDAZOLAM INJ 2MG/2ML VIAL As Ordered ONE (07:50)
[2024-05-31] MEDS ORDERED: fentaNYL 100 MCG/2 ML INJECTION As Ordered ONE (07:50)
[2024-05-31] MEDS: CIPROFLOXACIN/D5W 400 MG/200 ML BAG As Ordered ONE (08:52)
[2024-05-31] MEDS: CIPROFLOXACIN 400 MG in IV 1 EA IV ONE (08:55)
[2024-05-31] MEDS ORDERED: ACETAMINOPHEN 1000MG/100ML IV BAG As Ordered ONE (09:18)
[2024-05-31] MEDS ORDERED: fentaNYL 100 MCG/2 ML INJECTION IV PRN (09:45)
[2024-05-31] MEDS ORDERED: OXYB5TAB14 PO (09:57)
[2024-05-31] MEDS ORDERED: CIPR-249 PO (09:57)
[2024-05-31] MEDS: oxyCODONE 5MG TAB PO PRN (10:07)
[2024-05-31] MEDS: HYDROMORPHONE HCL 0.5 MG/ 0.5 ML SYRINGE IV PRN (10:07)
[2024-05-31] MEDS: ONDANSETRON 4MG 2ML VIAL IV PRN (10:08)
[2024-05-31] MEDS: oxyBUTYnin *DITROPAN XL* 5 MG TABCR PO ONE (12:29)
[2024-05-31 12:35] VITALS: BP 176/92; TEMP 96.8; O2SAT 95
== END 2024-05-31 12:59 | disposition home or self-care (01) ==
LOC: M SDC 07:28
PROVIDERS: ATTEND Urology
DX: N40.1 Benign prostatic hyperplasia with lower urinary tract symptoms (principal); R33.8 Other retention of urine; I11.0 Hypertensive heart disease with heart failure; I50.9 Heart failure, unspecified; E78.00 Pure hypercholesterolemia, unspecified; K74.60 Unspecified cirrhosis of liver; K44.9 Diaphragmatic hernia without obstruction or gangrene; Z79.899 Other long term (current) drug therapy; Z88.8 Allergy status to other drugs, medicaments and biological substances; Z87.891 Personal history of nicotine dependence
CPT/HCPCS: 52601; 88305; J0131; J0744; J1100; J1171; J2250; J2405; J3010

== ENCOUNTER → 2024-06-24 | Outpatient (CLI) | payer OTHER ==
[~2024-06-24] MED LIST changes: +CIPR-249 PO; +OXYB5TAB14 PO
== END ==
LOC: M CLY 12:47
PROVIDERS: ATTEND Internal Medicine Cardiovascular Disease
DX: I50.32 Chronic diastolic (congestive) heart failure (principal)

== ENCOUNTER → 2024-06-24 | Outpatient (REF) | payer OTHER ==
[2024-06-24 18:48] LABS: ALBUMIN 3.5 G/DL (3.2-5.2); BLOOD UREA NITROGEN 31 MG/DL (9-23); CALCIUM LEVEL 9.4 MG/DL (8.3-10.6); CARBON DIOXIDE LEVEL 24 MMOL/L (20-31); CHLORIDE LEVEL 109 MMOL/L (98-107); CREATININE FOR GFR 0.88 MG/DL (0.70-1.30); GLOMERULAR FILTRATION RATE > 90.0 (>49); GLUCOSE, FASTING 79 MG/DL (74-106); PHOSPHORUS LEVEL 3.8 MG/DL (2.4-5.1); POTASSIUM SERUM 4.2 MMOL/L (3.5-5.1); SODIUM LEVEL 144 MMOL/L (136-145)
== END ==
LOC: M LABDRAWC 17:22
PROVIDERS: ATTEND Internal Medicine Cardiovascular Disease
DX: I50.32 Chronic diastolic (congestive) heart failure (principal); I11.0 Hypertensive heart disease with heart failure

== ENCOUNTER → 2024-10-14 | Outpatient (CLI) | payer OTHER | LOC: M EKG 14:16 | PROVIDERS: ATTEND Physician Assistant | DX: R00.2 Palpitations (principal) ==

== ENCOUNTER → 2024-11-02 | Outpatient (REF) | payer OTHER ==
[2024-11-02 19:21] LABS: CALCIUM LEVEL 9.3 MG/DL (8.3-10.6); CARBON DIOXIDE LEVEL 26.0 MMOL/L (20-31); CHLORIDE LEVEL 101.0 MMOL/L (98-107); CREATININE FOR GFR 1.2 MG/DL (0.70-1.30); GLOMERULAR FILTRATION RATE 65.9 (>49); POTASSIUM SERUM 3.6 MMOL/L (3.5-5.1); SODIUM LEVEL 141.0 MMOL/L (136-145)
== END ==
LOC: M LAB REF 17:45
PROVIDERS: ATTEND Physician Assistant
DX: I11.0 Hypertensive heart disease with heart failure (principal); I50.9 Heart failure, unspecified

== ENCOUNTER → 2024-11-25 | Outpatient (REF) | payer OTHER | LOC: M SFHCCLAY 12:42 | PROVIDERS: ATTEND Urology | DX: N40.0 Benign prostatic hyperplasia without lower urinary tract symptoms (principal); Z12.5 Encounter for screening for malignant neoplasm of prostate ==

== ENCOUNTER → 2024-12-07 | Outpatient (REF) | payer OTHER ==
[2024-12-07 17:23] LABS: INR 0.99
[2024-12-07 17:57] LABS: ALT/SGPT 17.0 U/L (7.0-40); AST/SGOT 15.0 U/L (<34); CALCIUM LEVEL 9.9 MG/DL (8.3-10.6); CARBON DIOXIDE LEVEL 26.0 MMOL/L (20-31); CHLORIDE LEVEL 98.0 MMOL/L (98-107); CHOLESTEROL LEVEL 206.0 MG/DL (<200); CHOLESTEROL RISK RATIO 4.48 (<5); CREATININE FOR GFR 1.5 MG/DL (0.70-1.30); GLOMERULAR FILTRATION RATE 50.4 (>49); LDL CHOLESTEROL 141.7 MG/DL (<100); MAGNESIUM LEVEL 2.0 MG/DL (1.8-2.4); NON-HDL-C 160.1 MG/DL; POTASSIUM SERUM 3.2 MMOL/L (3.5-5.1); SODIUM LEVEL 142.0 MMOL/L (136-145); TRIGLYCERIDES LEVEL 92.0 MG/DL (<150)
[2024-12-07 18:19] LABS: BASO # 0.1 10^3/uL (0.0-0.2); BASO % 0.8 % (0.0-1.0); EOS # 0.1 10^3/uL (0.0-0.5); EOS % 0.9 % (0.0-3.0); LYMPH # 2.8 10^3/uL (1.5-5.0); LYMPH % 28.4 % (24.0-44.0); MONO # 1.2 10^3/uL (0.0-0.8); MONO % 11.8 % (2.0-8.0); NEUTROPHILS # 5.7 10^3/uL (1.5-8.5); NEUTROPHILS % 57.7 % (36.0-66.0); PLATELET COUNT, AUTOMATED 271 10^3/uL (150-450)
[2024-12-07 19:12] LABS: ESTIMATED AVERAGE GLUCOSE 114.0 MG/DL (60-110)
== END ==
LOC: M SFHCCLAY 13:31
PROVIDERS: ATTEND Nurse Practitioner Family
DX: K74.60 Unspecified cirrhosis of liver (principal); I50.9 Heart failure, unspecified; I10 Essential (primary) hypertension; E83.42 Hypomagnesemia; N40.0 Benign prostatic hyperplasia without lower urinary tract symptoms; Z79.899 Other long term (current) drug therapy